=== PATIENT | male | born 1970 | race Caucasian/White ===

== ENCOUNTER → 2019-11-25 09:53 | Outpatient (BNVA) | payer OTHER, SELFPAY | PROVIDERS: PCP Nurse Practitioner Family; Visit Provider Internal Medicine | DX: Z76.89 Persons encountering health services in other specified circumstances (principal) ==

== ENCOUNTER 2019-12-08 12:59 | Outpatient (REF) | payer OTHER, SELFPAY ==
[2019-12-11 13:47] LABS: HIV RNA PCR Qn Copies 30 copies/mL (NOT DETECTED); HIV RNA PCR Qn Log Copies 1.48 (NOT DETECTED)
== END 2019-12-08 13:00 | disposition home or self-care (01) ==
LOC: HO.LAB 12:59
PROVIDERS: PCP Nurse Practitioner Family; Visit Provider Internal Medicine
DX: B20 Human immunodeficiency virus [HIV] disease (principal)
CPT/HCPCS: 87536

== ENCOUNTER → 2020-02-03 13:32 | Outpatient (BNVA) | payer OTHER, SELFPAY | PROVIDERS: PCP Nurse Practitioner Family; Referring Provider Nurse Practitioner Family; Visit Provider Nurse Practitioner Family | DX: Z76.89 Persons encountering health services in other specified circumstances (principal) ==

== ENCOUNTER 2020-03-10 06:14 | Outpatient (REF) | payer OTHER, SELFPAY ==
[2020-03-10 11:51] LABS: Alanine Aminotransferase 39 U/L (0-40); Albumin Level 4.5 g/dL (3.5-5.0); Alkaline Phosphatase 54 U/L (39-117); Anion Gap 14 (12-20); Aspartate Amino Transferase 24 U/L (5-37); Bilirubin Total 0.7 mg/dL (0.0-1.0); Blood Urea Nitrogen 20 mg/dL (9-16); Calcium 9.4 mg/dL (8.4-10.2); Carbon Dioxide 26 mmol/L (22-29); Chloride 106 mmol/L (96-108); Cholesterol 140 mg/dL; Estimated Glomerular Filt Rate > 60; Glucose Fasting 95 mg/dL (60-99); HDL Cholesterol 28 mg/dL; LDL Cholesterol Calculated 55 mg/dl; Potassium 4.5 mmol/l (3.3-5.1); Sodium 141 mmol/L (135-145); Total Protein 7.9 g/dL (6.5-8.0); Triglycerides 285 mg/dL
[2020-03-10 12:10] LABS: Prostate Specific Antigen Scr 0.62 ng/mL (<0.05-4.0); TSH reflex Free T4 2.33 mIU/mL (0.32-4.0)
== END 2020-03-10 06:15 | disposition home or self-care (01) ==
LOC: HO.HMGCLDS 06:14
PROVIDERS: PCP Nurse Practitioner Family; Visit Provider Nurse Practitioner Family
DX: Z00.00 Encounter for general adult medical examination without abnormal findings (principal); Z12.5 Encounter for screening for malignant neoplasm of prostate
CPT/HCPCS: 36415; 80053; 80061; 84153; 84443

== ENCOUNTER 2020-05-19 12:39 | Outpatient (REF) | payer OTHER, SELFPAY ==
[2020-05-19 14:37] LABS: Alanine Aminotransferase 46 U/L (0-40); Albumin Level 4.6 g/dL (3.5-5.0); Alkaline Phosphatase 57 U/L (39-117); Aspartate Amino Transferase 26 U/L (5-37); Bilirubin Direct 0.3 mg/dL (0.0-0.5); Bilirubin Total 0.6 mg/dL (0.0-1.0); Cholesterol 138 mg/dL; HDL Cholesterol 31 mg/dL; LDL Cholesterol Calculated 75 mg/dl; Total Protein 7.9 g/dL (6.5-8.0); Triglycerides 164 mg/dL
[2020-05-20 13:02] LABS: Absolute CD3 Count 1879 cells/uL (840-3060); Absolute CD4 Count 961 cells/uL (490-1740); Absolute CD8 Count 911 cells/uL (180-1170); Absolute Lymphocytes 2230 cells/uL (850-3900); CD4 CD8 Ratio 1.05 (0.86-5.00); Percent CD3 Cells 84 % (57-85); Percent CD4 Cells 43 % (30-61); Percent CD8 Cells 41 % (12-42)
[2020-05-21 17:31] LABS: HIV RNA PCR Qn Copies <20 NOT DETECTED copies/mL (NOT DETECTED); HIV RNA PCR Qn Log Copies <1.30 NOT DETECTED (NOT DETECTED)
== END 2020-05-19 12:40 | disposition home or self-care (01) ==
LOC: HO.LAB 12:39
PROVIDERS: PCP Nurse Practitioner Family; Visit Provider Internal Medicine
DX: B20 Human immunodeficiency virus [HIV] disease (principal); E78.1 Pure hyperglyceridemia
CPT/HCPCS: 36415; 80061; 80076; 86359; 86360; 87536

== ENCOUNTER → 2020-05-25 09:55 | Outpatient (BNVA) | payer OTHER, SELFPAY | PROVIDERS: PCP Nurse Practitioner Family; Referring Provider Nurse Practitioner Family; Visit Provider Internal Medicine ==

== ENCOUNTER 2020-10-08 09:10 | Day surgery (SDC) | payer OTHER, SELFPAY ==
--- NOTE | 2020-10-07 10:06 | P.CONAN_ITS ---
Documented by User: Aleida Khalil NP 10/07/20 10:06 HPI - Anesthesia Eval Consult details Narrative: 49yo M for Colonoscopy PMFSH Active Problems Active Problems: All Active Problems (Updated 05/25/20 @ 13:57 by Linda Alonzo MD) HIV (human immunodeficiency virus infection) (Acute) High triglycerides (Acute) High body mass index (BMI) (Acute) Physical exam (Acute) Screening PSA (prostate specific antigen) (Acute) Screening for colon cancer (Acute) Past Medical History Medical History Dyslipidemia Hepatitis C High body mass index (BMI) High triglycerides HIV (human immunodeficiency virus infection) HTN (hypertension) PONV (postoperative nausea and vomiting) Family History Family History Mother Lung cancer Colon cancer Paternal Grandfather Colon cancer Surgical History Surgical History History of ear surgery [place] teeth extracted Social History Social History Are you a primary care management associate to a significant other at home: No Do you presently have visiting nurse or other home services: No Alcohol intake: current Alcohol intake frequency: holidays/special occasions only Second Hand Smoke Exposure: No Advance Directives: No Advance Directives Information Provided: Yes Meds Allergies Allergy/AdvReac Type Severity Reaction Status Date / Time amoxicillin Allergy Unknown hives Unverified 09/30/20 15:12 Home Medications Medication Instructions Recorded Confirmed Last Taken Type ascorbate calcium (vitamin C) 500 500 mg PO DAILY 11/25/19 09/30/20 Unknown History mg tablet cholecalciferol (vitamin D3) 250 250 mcg PO DAILY 11/25/19 09/30/20 Unknown History mcg (10,000 unit) capsule Exam Exam Date and Time: October 07, 2020 1006 Assessment and Plan Assessment Anesthesia Assessment: Chart Reviewed Documented by User: Tamanna Garcia MD 10/08/20 09:50 PMF Past Medical History Medical History Dyslipidemia Hepatitis C High body mass index (BMI) High triglycerides HIV (human immunodeficiency virus infection) HTN (hypertension) PONV (postoperative nausea and vomiting) Family History Family History Mother Lung cancer Colon cancer Paternal Grandfather Colon cancer Surgical History Surgical History History of ear surgery [place] teeth extracted History of Problems with Anesthesia: No Social History Social History Are you a primary care management associate to a significant other at home: No Do you presently have visiting nurse or other home services: No Alcohol intake: current Alcohol intake frequency: holidays/special occasions only Second Hand Smoke Exposure: No Advance Directives: No Advance Directives Information Provided: Yes Meds Allergies Allergy/AdvReac Type Severity Reaction Status Date / Time amoxicillin Allergy Unknown hives Unverified 09/30/20 15:12 Home Medications Medication Instructions Recorded Confirmed Last Taken Type ascorbate calcium (vitamin C) 500 500 mg PO DAILY 11/25/19 09/30/20 Unknown History mg tablet cholecalciferol (vitamin D3) 250 250 mcg PO DAILY 11/25/19 09/30/20 Unknown History mcg (10,000 unit) capsule Exam Airway Mallampati Class: II TM Dist: >3cm Neck ROM: Full Loose/Missing/Broken Teeth: No Heart: RRR Lungs: CTA Assessment and Plan Assessment Anesthesia Assessment: Anesthesia Plan Discussed Final Anesthetic Review History of Problems with Anesthesia: No NPO: Yes ASA Class: II Final Preanesthetic Review: Meds/Allgs Chart Reviewed, Consent Obtained/Reviewed and Anes Risks/Benef Reviewed Patient Risk: Low Procedure Risk: Low Anesthetic Plan Anesthetic Plan: MAC: Disposition: Standard PACU
[2020-10-08 09:51] VITALS: BP 136/81; PULSE 67; RESP 16; TEMP 36.4; O2SAT 97; BMI 37.8
[2020-10-08] MEDS: Lactated Ringers 1,000 ML 100 ML IVCONT (10:01)
--- NOTE | 2020-10-08 10:13 | P.HPSUR_ITS ---
Pre-Procedural Eval Section A Date of Service: 10/08/20 The patient is an INPATIENT: No The History & Physical has been completed within 30 days and I have reviewed it.: No Section B Chief Complaint: Screening Details of Present Illness: colon cancer screening, FH of colon cancer Relevant Family History (Specify if Yes): Yes Relevant Social History: None Present Medications: see Short Stay Collaborative assessment Medical History: Significant History (Dyslipidemia Hepatitis C High body mass index (BMI) High triglycerides HIV (human immunodeficiency virus infection) HTN (hypertension)) History of Previous Operations: Relevant previous surgery/procedure and date(s) (History of ear surgery [place] teeth extracted) Allergies: Allergies Allergy/AdvReac Type Severity Reaction Status Date / Time amoxicillin Allergy Unknown hives Verified 10/08/20 10:02 Review of Systems Sugical H&P ROS: Negative: Constitution, Cardiovascular, Respiratory and Gastrointestinal Exam Surgical H&P Exam: Normal: Heart, Normal: Lungs, Normal: Extremities and Normal: Abdomen Plan Diagnosis/Plan: Unchanged I have reviewed the history and physical and performed a pertinent physical examination on my patient. No changes have occurred unless specified.
--- NOTE | 2020-10-08 10:34 | PM.OP ---
Brief Operative Note Date of Service: 10/08/20 Pre-op diagnosis: Colon cancer screening, family history of colon cancer (paternal GF at age 68 yrs) Post-op diagnosis: other (Colon polyp, diverticulosis, hemorrhoids.) Procedure: COLONOSCOPY TILL CECUM WITH BIOPSIES Consent: Indications for the procedure and potential complications of bleeding, perforation, reaction to medications and missed diagnosis were discussed with the patient and informed consent was obtained. Instrument: Olympus PCF H 190 L variable stiffness pediatric colonoscope Monitoring: Vital signs and clinical assessment, intermittent blood pressure monitoring, continuous EKG monitoring, Pulse oximetry and Carbon Dioxide monitoring were done throughout the procedure. Colon withdrawl time was 20 minutes. Procedure: The patient was placed in the left lateral decubitis position and pre-procedure medications were administered. After a digital rectal examination of the ano-rectum, the video colonoscope was inserted into the rectum and advanced through the colon to the cecum. The colonoscope was slowly withdrawn in a retrograde panoramic fashion and the colon mucosa was carefully examined including a retroflexed view of the rectum. Findings and interventions are described below. Procedure Difficulty: Without difficulty Findings: Terminal Ileum: Not evaluated Cecum: Normal Ascending Colon: Normal Transverse Colon: Normal Descending Colon: A 2-3 mm diminutive appearing polyps removed with the cold biopsy Sigmoid Colon: Mild diverticulosis Rectum: Normal Ano-rectum: Moderate internal hemorrhoids Colon preparation: Good after some irrigation Impression and Post Procedure Diagnosis: Colonoscopy Findings: One tiny polyp removed Mild diverticulosis seen in the sigmoid colon Moderate hemorrhoids on retroflexed exam. Plan: Await pathology results Patient has an appointment on 10/20/20 in the GI Clinic with Paz Wiley FNP-BC . Repeat Colonoscopy interval based on path results - in 5 years if polyps are adenomatous and due to family hx of colon cancer. Above findings were reviewed with the patient and colon polyps and diverticulosis handouts were given in the discharge area Surgeon: Umu Spaulding MD Anesthesia: MAC (Dr Hartley) Was an Screw Machine Set Up Operator used for this Procedure?: No Screw Machine Set Up Operator: Sabine Singh Estimated blood loss (mL): 0 Pathology: other (A- DESCENDING COLON POLYP) Condition: stable Disposition: PACU
[2020-10-08 11:15] VITALS: BP 101/44; PULSE 93; RESP 16; TEMP 36.4; O2SAT 96
[2020-10-08 11:30] VITALS: BP 113/64; PULSE 75; RESP 18; O2SAT 96
[2020-10-08 11:45] VITALS: BP 109/59; PULSE 71; RESP 18; TEMP 37; O2SAT 97
--- NOTE | 2020-10-08 17:38 | P.OP_ITS ---
Operative Note Operative Note Date of Service: 10/08/20 Narrative: Pre-op diagnosis:?Colon cancer screening, family history of colon cancer (paternal GF at age 68 yrs) Post-op diagnosis:?other (Colon polyp, diverticulosis, hemorrhoids.) Procedure:? COLONOSCOPY TILL CECUM WITH BIOPSIES Consent: Indications for the procedure and potential complications of bleeding, perforation, reaction to medications and missed diagnosis were discussed with the patient and informed consent was obtained. Instrument: Olympus PCF H 190 L variable stiffness pediatric colonoscope Monitoring: Vital signs and clinical assessment, intermittent blood pressure monitoring, continuous EKG monitoring, Pulse oximetry and Carbon Dioxide monitoring were done throughout the procedure. Colon withdrawl time was 20 minutes. Procedure: The patient was placed in the left lateral decubitis position and pre-procedure medications were administered. After a digital rectal examination of the ano-rectum, the video colonoscope was inserted into the rectum and advanced through the colon to the cecum. The colonoscope was slowly withdrawn in a retrograde panoramic fashion and the colon mucosa was carefully examined including a retroflexed view of the rectum. Findings and interventions are described below. Procedure Difficulty: Without difficulty Findings: Terminal Ileum: Not evaluated Cecum:? Normal Ascending Colon:? Normal Transverse Colon:? Normal Descending Colon:? A 2-3 mm diminutive appearing polyps removed with the cold biopsy Sigmoid Colon:? Mild diverticulosis Rectum:? Normal Ano-rectum:? Moderate internal hemorrhoids Colon preparation:? Good after some irrigation Impression and Post Procedure Diagnosis: Colonoscopy Findings: One tiny polyp removed Mild diverticulosis seen in the sigmoid colon Moderate hemorrhoids on retroflexed exam. Plan: Await pathology results Patient has an appointment on 10/20/20 in the GI Clinic with ? Paz Wiley FNP . Repeat Colonoscopy interval based on path results - in 5 years if polyps are adenomatous and due to family hx of colon cancer. Above findings were reviewed with the patient and colon polyps and diverticulosis handouts were given in the discharge area Surgeon:?Umu Spaulding MD Anesthesia:?MAC (Dr Hartley) Was an Real Estate Sales Associate used for this Procedure?:?No Real Estate Sales Associate:?Sabine Singh Estimated blood loss (mL):?0 Pathology:?other (A- DESCENDING COLON POLYP) Condition:?stable Disposition:?PACU
== END 2020-10-08 12:22 ==
LOC: HO.SSS 09:10
PROVIDERS: PCP Nurse Practitioner Family; Visit Provider Internal Medicine Gastroenterology
PROC: 0DJD8ZZ Inspection of Lower Intestinal Tract, Via Natural or Artificial Opening Endoscopic (ICD-10-PCS; CPT 45378; principal; 2020-10-08 10:30)
DX: Z12.11 Encounter for screening for malignant neoplasm of colon (principal); Z80.0 Family history of malignant neoplasm of digestive organs; K63.5 Polyp of colon; K57.30 Diverticulosis of large intestine without perforation or abscess without bleeding; K64.8 Other hemorrhoids; I10 Essential (primary) hypertension; E78.5 Hyperlipidemia, unspecified; B19.20 Unspecified viral hepatitis C without hepatic coma; B20 Human immunodeficiency virus [HIV] disease; Z79.899 Other long term (current) drug therapy; Z88.0 Allergy status to penicillin
CPT/HCPCS: 45380; 88305

== ENCOUNTER 2020-11-30 07:20 | Outpatient (REF) | payer OTHER, SELFPAY ==
[2020-11-30 11:35] LABS: MANUAL DIFF FLAG NO
[2020-11-30 11:41] LABS: Basophils Percent Auto 0.6 % (0-2); Eosinophils Absolute Auto 0.1 X10*3/uL (0.0-0.4); Eosinophils Percent Auto 1.9 % (0-4); Hematocrit 42.6 % (42-52); Hemoglobin 14.8 g/dl (14.0-18.0); Imm Gran Abs Auto 0.02 X10*3/uL (0.00-0.03); Imm Gran Pct Auto 0.3 % (0.0-0.4); Lymphocytes Absolute Auto 2.4 X10*3/uL (1.2-4.9); Lymphocytes Percent Auto 35.4 % (20-40); Mean Corpuscular HGB Conc 34.7 g/dl (31.0-36.0); Mean Corpuscular Hemoglobin 32.1 pg (27.0-33.0); Mean Corpuscular Volume 92.4 fL (80-98); Mean Platelet Volume 11.2 fL (9.4-12.4); Monocytes Absolute Auto 0.6 X10*3/uL (0.1-1.2); Monocytes Percent Auto 8.4 % (2-11); Neutrophils Absolute Auto 3.6 X10*3/uL (2.0-8.3); Neutrophils Percent Auto 53.4 % (45-73); Platelet Count 186 X10*3/uL (160-400); Red Blood Count 4.61 X10*6/uL (4.60-5.80); Red Cell Distribution Width 12.1 % (11.0-16.0); White Blood Count 6.8 X10*3/uL (4.8-10.8)
[2020-11-30 11:58] LABS: Alanine Aminotransferase 40 U/L (0-40); Albumin Level 4.4 g/dL (3.5-5.0); Alkaline Phosphatase 51 U/L (39-117); Anion Gap 12 (12-20); Aspartate Amino Transferase 24 U/L (5-37); Bilirubin Direct 0.2 mg/dL (0.0-0.5); Bilirubin Total 0.6 mg/dL (0.0-1.0); Blood Urea Nitrogen 15 mg/dL (9-16); Calcium 9.8 mg/dL (8.4-10.2); Carbon Dioxide 23 mmol/L (22-29); Chloride 106 mmol/L (96-108); Estimated Glomerular Filt Rate > 60; Glucose Random 127 mg/dL (60-115); Potassium 4.5 mmol/L (3.3-5.1); Sodium 136 mmol/L (135-145); Total Protein 7.8 g/dL (6.5-8.0)
[2020-12-01 09:55] LABS: Syphilis Screen Nonreactive (Nonreactive)
[2020-12-01 12:16] LABS: Absolute CD3 Count 1829 cells/uL (840-3060); Absolute CD4 Count 779 cells/uL (490-1740); Absolute CD8 Count 1035 cells/uL (180-1170); Absolute Lymphocytes 2363 cells/uL (850-3900); CD4 CD8 Ratio 0.75 (0.86-5.00); Percent CD3 Cells 77 % (57-85); Percent CD4 Cells 33 % (30-61); Percent CD8 Cells 44 % (12-42)
[2020-12-01 14:56] LABS: HIV RNA PCR Qn Copies 485 copies/mL (NOT DETECTED); HIV RNA PCR Qn Log Copies 2.69 (NOT DETECTED)
[2020-12-02 15:01] LABS: HCV Log PCR <1.18 NOT DETECTED Log IU/mL (NOT DETECTED); HepC Viral Load <15 NOT DETECTED IU/mL (NOT DETECTED)
== END 2020-11-30 07:21 | disposition home or self-care (01) ==
LOC: HO.HMGCLDS 07:20
PROVIDERS: PCP Nurse Practitioner Family; Visit Provider Internal Medicine
DX: B20 Human immunodeficiency virus [HIV] disease (principal)
CPT/HCPCS: 36415; 80048; 80076; 85025; 86359; 86360; 86780; 87522; 87536

== ENCOUNTER → 2020-12-08 10:04 | Outpatient (BNVA) | payer OTHER, SELFPAY | PROVIDERS: Visit Provider Internal Medicine ==

== ENCOUNTER 2021-03-22 07:08 | Outpatient (REF) | payer OTHER, SELFPAY ==
[2021-03-22 11:31] LABS: Appearance Urine TURBID; Color Urine YELLOW; Glucose Urine UA NEG (NEG); Leukocyte Esterase Urine NEG (NEG); Nitrite Urine NEG (NEG); PH 5.5 (5.0-8.0); Specific Gravity - Urine >= 1.030 (1.005-1.025); UACC Culture Trigger NO; Urine Blood 1+ (NEG); Urine Ketones NEG (NEG); Urine Protein NEG (NEG-TRACE)
[2021-03-22 11:58] LABS: Alanine Aminotransferase 45 U/L (0-40); Albumin Level 4.5 g/dL (3.5-5.0); Alkaline Phosphatase 54 U/L (39-117); Anion Gap 10 (12-20); Aspartate Amino Transferase 24 U/L (5-37); Bilirubin Total 0.7 mg/dL (0.0-1.0); Blood Urea Nitrogen 23 mg/dL (9-16); Calcium 9.9 mg/dL (8.4-10.2); Carbon Dioxide 25 mmol/L (22-29); Chloride 107 mmol/L (96-108); Cholesterol 158 mg/dL; Estimated Glomerular Filt Rate > 60; Glucose Fasting 108 mg/dL (60-99); HDL Cholesterol 33 mg/dL; LDL Cholesterol Calculated 84 mg/dl; Potassium 4.1 mmol/L (3.3-5.1); Sodium 138 mmol/L (135-145); Total Protein 8.1 g/dL (6.5-8.0); Triglycerides 208 mg/dL
[2021-03-22 12:02] LABS: Amorphous Sediment Urine 4+ /LPF; RBC Urine 0-2 /HPF (0); WBC Urine 0 /HPF (0-4)
[2021-03-22 12:20] LABS: Prostate Specific Antigen Scr 0.56 ng/mL (<0.05-4.0)
== END 2021-03-22 07:09 | disposition home or self-care (01) ==
LOC: HO.HMGCLDS 07:08
PROVIDERS: Visit Provider Nurse Practitioner Family
DX: Z00.00 Encounter for general adult medical examination without abnormal findings (principal); Z12.5 Encounter for screening for malignant neoplasm of prostate
CPT/HCPCS: 36415; 80053; 80061; 81001; 84153; 84443

== ENCOUNTER 2021-06-06 08:04 | Outpatient (REF) | payer OTHER, SELFPAY ==
[2021-06-07 13:51] LABS: Absolute CD3 Count 1805 cells/uL (840-3060); Absolute CD4 Count 825 cells/uL (490-1740); Absolute CD8 Count 979 cells/uL (180-1170); Absolute Lymphocytes 2274 cells/uL (850-3900); CD4 CD8 Ratio 0.84 (0.86-5.00); Percent CD3 Cells 79 % (57-85); Percent CD4 Cells 36 % (30-61); Percent CD8 Cells 43 % (12-42)
[2021-06-08 22:36] LABS: HIV RNA PCR Qn Copies 28 copies/mL (NOT DETECTED); HIV RNA PCR Qn Log Copies 1.45 (NOT DETECTED)
== END 2021-06-06 08:05 | disposition home or self-care (01) ==
LOC: HO.LAB 08:04
PROVIDERS: PCP Nurse Practitioner Family; Visit Provider Internal Medicine
DX: B20 Human immunodeficiency virus [HIV] disease (principal)
CPT/HCPCS: 36415; 86359; 86360; 87536

== ENCOUNTER 2021-06-20 07:39 | Outpatient (REF) | payer OTHER, SELFPAY ==
[2021-06-20 10:12] LABS: Syphilis Screen Nonreactive (Nonreactive)
[2021-06-22 15:52] LABS: Absolute CD3 Count 1495 cells/uL (840-3060); Absolute CD4 Count 720 cells/uL (490-1740); Absolute CD8 Count 778 cells/uL (180-1170); Absolute Lymphocytes 1879 cells/uL (850-3900); CD4 CD8 Ratio 0.92 (0.86-5.00); Percent CD3 Cells 80 % (57-85); Percent CD4 Cells 38 % (30-61); Percent CD8 Cells 41 % (12-42)
[2021-06-22 20:41] LABS: HCV Log PCR <1.18 NOT DETECTED Log IU/mL (NOT DETECTED); HepC Viral Load <15 NOT DETECTED IU/mL (NOT DETECTED)
[2021-06-22 21:17] LABS: HIV RNA PCR Qn Copies 28 copies/mL (NOT DETECTED); HIV RNA PCR Qn Log Copies 1.45 (NOT DETECTED)
== END 2021-06-20 07:40 | disposition home or self-care (01) ==
LOC: HO.LAB 07:39
PROVIDERS: PCP Nurse Practitioner Family; Visit Provider Internal Medicine
DX: B20 Human immunodeficiency virus [HIV] disease (principal)
CPT/HCPCS: 36415; 86359; 86360; 86780; 87522; 87536

== ENCOUNTER → 2021-06-29 10:05 | Outpatient (BNVA) | payer OTHER, SELFPAY | PROVIDERS: PCP Nurse Practitioner Family; Visit Provider Internal Medicine | DX: B20 Human immunodeficiency virus [HIV] disease (principal) ==

== ENCOUNTER 2021-12-24 09:43 | Outpatient (REF) | payer OTHER, SELFPAY ==
[2021-12-24 10:05] LABS: MANUAL DIFF FLAG NO
[2021-12-24 10:18] LABS: Basophils Absolute Auto 0.1 X10*3/uL (0.0-0.2); Basophils Percent Auto 0.9 % (0-2); Eosinophils Absolute Auto 0.1 X10*3/uL (0.0-0.4); Eosinophils Percent Auto 2.1 % (0-4); Hematocrit 41.9 % (42.0-52.0); Hemoglobin 14.9 g/dl (14.0-18.0); Imm Gran Abs Auto 0.02 X10*3/uL (0.00-0.03); Imm Gran Pct Auto 0.3 % (0.0-0.4); Lymphocytes Absolute Auto 2.2 X10*3/uL (1.2-4.9); Lymphocytes Percent Auto 35.4 % (20-40); Mean Corpuscular HGB Conc 35.6 g/dl (31.0-36.0); Mean Corpuscular Hemoglobin 31.4 pg (27.0-33.0); Mean Corpuscular Volume 88.4 fL (80.0-98.0); Mean Platelet Volume 9.8 fL (9.4-12.4); Monocytes Absolute Auto 0.5 X10*3/uL (0.1-1.2); Monocytes Percent Auto 8.5 % (2-11); Neutrophils Absolute Auto 3.3 x10*3/uL (2.0-8.3); Neutrophils Percent Auto 52.8 % (45-73); Platelet Count 189 X10*3/uL (160-400); Red Blood Count 4.74 X10*6/uL (4.60-5.80); Red Cell Distribution Width 11.9 % (11.0-16.0); White Blood Count 6.3 X10*3/uL (4.8-10.8)
[2021-12-24 10:49] LABS: Alanine Aminotransferase 47 U/L (0-40); Albumin Level 4.5 g/dL (3.5-5.0); Alkaline Phosphatase 60 U/L (39-117); Anion Gap 13 (12-20); Aspartate Amino Transferase 28 U/L (5-37); Bilirubin Direct 0.3 mg/dL (0.0-0.5); Bilirubin Total 0.7 mg/dL (0.0-1.0); Blood Urea Nitrogen 18 mg/dL (9-16); Calcium 9.6 mg/dL (8.4-10.2); Carbon Dioxide 23 mmol/L (22-29); Chloride 105 mmol/L (96-108); Estimated Glomerular Filt Rate > 60; Glucose Random 103 mg/dL (60-115); Potassium 3.8 mmol/L (3.3-5.1); Sodium 137 mmol/L (135-145); Total Protein 7.9 g/dL (6.5-8.0)
[2021-12-24 14:55] LABS: CT PCR NOT DETECTED (Not Detect.); NG PCR NOT DETECTED (Not Detect.)
[2021-12-26 05:32] LABS: Syphilis Screen Nonreactive (Nonreactive)
[2021-12-26 13:02] LABS: Absolute CD3 Count 1800 cells/uL (840-3060); Absolute CD4 Count 879 cells/uL (490-1740); Absolute CD8 Count 919 cells/uL (180-1170); Absolute Lymphocytes 2195 cells/uL (850-3900); CD4 CD8 Ratio 0.96 (0.86-5.00); Percent CD3 Cells 82 % (57-85); Percent CD4 Cells 40 % (30-61); Percent CD8 Cells 42 % (12-42)
[2021-12-28 13:31] LABS: HIV RNA PCR Qn Copies <20 DETECTED copies/mL (NOT DETECTED); HIV RNA PCR Qn Log Copies <1.30 DETECTED (NOT DETECTED)
[2021-12-29 14:16] LABS: HCV Log PCR <1.18 NOT DETECTED Log IU/mL (NOT DETECTED); HepC Viral Load <15 NOT DETECTED IU/mL (NOT DETECTED)
== END 2021-12-24 09:44 | disposition home or self-care (01) ==
LOC: HO.LAB 09:43
PROVIDERS: PCP Nurse Practitioner Family; Visit Provider Internal Medicine
DX: Z11.3 Encounter for screening for infections with a predominantly sexual mode of transmission (principal); B20 Human immunodeficiency virus [HIV] disease
CPT/HCPCS: 80048; 80076; 85025; 86359; 86360; 86780; 87491; 87522; 87536; 87591

== ENCOUNTER 2022-06-03 09:32 | Outpatient (REF) | payer OTHER, SELFPAY ==
[2022-06-03 09:42] LABS: MANUAL DIFF FLAG NO
[2022-06-03 09:50] LABS: Basophils Absolute Auto 0.1 X10*3/uL (0.0-0.2); Basophils Percent Auto 0.9 % (0-2); Eosinophils Absolute Auto 0.1 X10*3/uL (0.0-0.4); Eosinophils Percent Auto 1.7 % (0-4); Hematocrit 43.5 % (42.0-52.0); Hemoglobin 15.3 g/dl (14.0-18.0); Imm Gran Abs Auto 0.02 X10*3/uL (0.00-0.03); Imm Gran Pct Auto 0.4 % (0.0-0.4); Lymphocytes Absolute Auto 1.7 X10*3/uL (1.2-4.9); Lymphocytes Percent Auto 32.3 % (20-40); Mean Corpuscular HGB Conc 35.2 g/dl (31.0-36.0); Mean Corpuscular Hemoglobin 31.5 pg (27.0-33.0); Mean Corpuscular Volume 89.7 fL (80.0-98.0); Mean Platelet Volume 9.9 fL (9.4-12.4); Monocytes Absolute Auto 0.4 X10*3/uL (0.1-1.2); Monocytes Percent Auto 6.7 % (2-11); Neutrophils Absolute Auto 3.1 x10*3/uL (2.0-8.3); Platelet Count 199 X10*3/uL (160-400); Red Blood Count 4.85 X10*6/uL (4.60-5.80); White Blood Count 5.4 X10*3/uL (4.8-10.8)
[2022-06-03 10:29] LABS: Alanine Aminotransferase 29 U/L (0-40); Albumin Level 4.4 g/dL (3.5-5.0); Alkaline Phosphatase 55 U/L (39-117); Anion Gap 13 (12-20); Aspartate Amino Transferase 20 U/L (5-37); Bilirubin Direct 0.3 mg/dL (0.0-0.5); Bilirubin Total 0.9 mg/dL (0.0-1.0); Blood Urea Nitrogen 13 mg/dL (9-16); Calcium 9.6 mg/dL (8.4-10.2); Carbon Dioxide 24 mmol/L (22-29); Chloride 106 mmol/L (96-108); Estimated Glomerular Filt Rate > 60; Glucose Random 143 mg/dL (60-115); Sodium 139 mmol/L (135-145); Total Protein 7.5 g/dL (6.5-8.0)
[2022-06-05 08:53] LABS: Syphilis Screen Nonreactive (Nonreactive)
[2022-06-05 15:48] LABS: Absolute CD3 Count 1417 cells/uL (840-3060); Absolute CD4 Count 752 cells/uL (490-1740); Absolute CD8 Count 675 cells/uL (180-1170); Absolute Lymphocytes 1791 cells/uL (850-3900); CD4 CD8 Ratio 1.11 (0.86-5.00); Percent CD3 Cells 79 % (57-85); Percent CD4 Cells 42 % (30-61); Percent CD8 Cells 38 % (12-42)
[2022-06-06 20:28] LABS: HIV RNA PCR Qn Copies NOT DETECTED copies/mL (NOT DETECTED); HIV RNA PCR Qn Log Copies NOT DETECTED (NOT DETECTED)
[2022-06-07 18:49] LABS: HCV Log PCR <1.18 NOT DETECTED Log IU/mL (NOT DETECTED); HepC Viral Load <15 NOT DETECTED IU/mL (NOT DETECTED)
== END 2022-06-03 09:33 | disposition home or self-care (01) ==
LOC: HO.LAB 09:32
PROVIDERS: PCP Nurse Practitioner Family; Visit Provider Internal Medicine
DX: B20 Human immunodeficiency virus [HIV] disease (principal)
CPT/HCPCS: 36415; 80048; 80076; 85025; 86359; 86360; 86780; 87522; 87536

== ENCOUNTER → 2022-07-05 13:04 | Outpatient (BNVA) | payer OTHER, SELFPAY | PROVIDERS: PCP Nurse Practitioner Family; Visit Provider Internal Medicine ==

== ENCOUNTER 2022-09-29 07:23 | Outpatient (REF) | payer OTHER, SELFPAY ==
[2022-09-29 08:46] LABS: Alanine Aminotransferase 42 U/L (0-40); Albumin Level 4.2 g/dL (3.5-5.0); Alkaline Phosphatase 55 U/L (39-117); Anion Gap 10 (12-20); Aspartate Amino Transferase 28 U/L (5-37); Bilirubin Total 0.7 mg/dL (0.0-1.0); Blood Urea Nitrogen 16 mg/dL (9-16); Calcium 9.7 mg/dL (8.4-10.2); Carbon Dioxide 25 mmol/L (22-29); Chloride 110 mmol/L (96-108); Estimated Glomerular Filt Rate > 60; Glucose Fasting 99 mg/dL (60-99); Potassium 3.9 mmol/L (3.3-5.1); Sodium 141 mmol/L (135-145)
[2022-09-29 08:51] LABS: Estimated Average Glucose 91 mg/dL; Hemoglobin A1c % 4.8 %
== END 2022-09-29 07:24 | disposition home or self-care (01) ==
LOC: HO.LAB 07:23
PROVIDERS: PCP Nurse Practitioner Family; Visit Provider Nurse Practitioner Family
DX: R73.01 Impaired fasting glucose (principal)
CPT/HCPCS: 36415; 80053; 83036

== ENCOUNTER 2022-10-18 08:46 | Outpatient (AMB) | payer OTHER, SELFPAY ==
[2022-10-18 08:53] VITALS: BP 146/88; PULSE 75; O2SAT 97; BMI 37.8
--- NOTE | 2022-10-18 08:53 | MHC.PC.OV ---
Vital Signs 10/18/22 08:53 10/18/22 09:24 Height 5 ft 4 in Weight 220 lb 6 oz BMI 37.8 BP 146/88 H 146/84 H Blood Pressure Location Lt brachial Lt brachial Position Sitting Sitting Pulse 75 Pulse Source Pulse Oximeter Pulse Oximetry (%) 97 Oxygen Delivery Method Room Air Intake Visit Reasons: Annual PE Allergies amoxicillin Allergy (Unknown, Verified 10/18/22 08:57) hives Medication List - Last Reconciled 10/18/22 by AMY Saleh ascorbate calcium (vitamin C) 500 mg PO DAILY atorvastatin 10 mg PO DAILY cholecalciferol (vitamin D3) 250 mcg PO DAILY dolutegravir (Tivicay) 50 mg PO DAILY 30 days emtricitabine-tenofovir alafen 200-25 mg (Descovy) 1 tab PO DAILY 30 days lisinopril 2.5 mg PO DAILY omega-3 acid ethyl esters 1 cap PO BID sertraline 50 mg PO DAILY Tobacco use date assessed: 10/18/22 Dental Screening Dental Screen Date: 10/18/22 Did you have a dental visit in the last 12 months?: No Did you have a dental problem in the last 6 months where you did not have access to dental care?: No Was dental information given to patient?: No HPI Annual PE HPI Details Pt is here for a PE. Will order labs. Colon screen is up to date. Due for PSA, will order. Denies dribbling with urination, weal stream, and nocturia. Pt reports ED. Will check testosterone and send sildenafil. HTN: Will have pt monitor his blood pressure at home and drop off values in a few weeks. Denies chest pain, shortness of breath, headache, dizziness, and blurred vision. [facility] Medical History Dyslipidemia Hepatitis C High body mass index (BMI) High triglycerides HIV (human immunodeficiency virus infection) HTN (hypertension) PONV (postoperative nausea and vomiting) Surgical History History of ear surgery [place] teeth extracted Family History Mother Lung cancer Colon cancer Mental health disorder Paternal Grandfather Colon cancer Other Substance use disorder Social History Housing: Apartment Are you a primary career guidance technician to a significant other at home: No Do you presently have visiting nurse or other home services: No Alcohol intake: current Alcohol intake frequency: holidays/special occasions only Patient Tobacco Use Status: Never used Tobacco e-Cigarette/Vaping Use: Never Used Second Hand Smoke Exposure: No Current occupational status: employed Cognitive needs: No Hearing needs: No Vision needs: No Questionnaire Thrive Questionnaire Date Thrive assessed: 03/10/21 BRISA-7 AMB Questionnaire BRISA-7 Date BRISA - 7 assessed: 03/10/21 Source: Developed by Drs. Gary Mckeon, Jesica Edmond, Aj Pitts and colleagues, with an educational anamaria from [employer]. Review of Systems Const Denies chills and Denies fever(s) Eyes Denies blurry vision ENT Denies vertigo, Denies dizziness and Denies sore throat Card Denies chest pain at rest, Denies chest pain with activity, Denies diaphoresis, Denies dyspnea and Denies dyspnea on exertion Resp Denies cough, Denies dyspnea, Denies dyspnea on exertion and Denies wheezing GI Denies abdominal pain, Denies melena, Denies hematochezia, Denies constipation, Denies diarrhea and Denies loose stools Denies hematuria Musc Denies numbness and Denies tingling Skin/Breast Denies lesions Neuro Denies vertigo, Denies dizziness, Denies numbness and Denies tingling Psych Denies anxiety, Denies depression, Denies homicidal ideation, Denies suicidal ideation and Denies other (substance abuse) Aller/Immun Denies wheezing Physical exam (Primary Care) Vital Signs: Last Vital Signs Pulse 75 10/18/22 08:53 BP 146/88 H 10/18/22 08:53 Pulse Ox 97 10/18/22 08:53 Oxygen Delivery Method Room Air 10/18/22 08:53 BMI result Body Mass Index 37.8 Tobacco/Smoking Status: Tobacco use Status Tobacco use date assessed 10/18/22 10/18/22 08:59 Patient Tobacco Use Status Never used Tobacco 10/18/22 08:54 e-Cigarette/Vaping Use Never Used 10/18/22 08:59 Thrive Assessment: Date of Thrive Assessment Date Thrive assessed 03/10/21 10/18/22 08:54 Const General: cooperative Nutritional Appearance: obese Orientation/consciousness: patient oriented x3 HENMT Head: Yes normal to inspection, Yes normocephalic and Yes atraumatic Ears: TM's normal bilaterally Eyes General: appearance normal, both eyes and all related structures Alignment and Position: alignment normal and position normal Neck Neck: Yes normal visual inspection and Yes no lymphadenopathy Thyroid: Thyroid normal Resp Effort & Inspection: normal respiratory effort Auscultation: clear to auscultation bilaterally Cardio Rate: regular rate Rhythm: regular rhythm Heart sounds: S1 normal heart sound present, S2 normal heart sound present and no murmurs GI Palpation (GI): Soft to palpation and nontender Auscultation: normal bowel sounds Male General Exam: Yes normal external exam Penis: normal penis Scrotum: scrotum normal, testes descended bilaterally and no inguinal hernias Testes: no testicular mass Skin Rashes: no rashes Neuro General: patient oriented x3, moves all extremities, no focal motor deficits and deep tendon reflexes 2+ bilaterally Romberg Test: Negative Psych Appearance: grossly normal Mental Status: mental status grossly normal Speech and movement: Normal speech and movement present Affect: normal affect Attitude: cooperative Thought process: Normal thought process present Thought content: Normal thought content present Insight: Good insight present (Psych) Judgement: Good judgement present (Psych) Assessment and Plan Assessment & Plan (1) Physical exam: Code(s): Z00.00 - Encounter for general adult medical examination without abnormal findings Plan: Labs ordered (2) Screening PSA (prostate specific antigen): Code(s): Z12.5 - Encounter for screening for malignant neoplasm of prostate Plan: PSA ordered (3) Erectile dysfunction: Code(s): N52.9 - Male erectile dysfunction, unspecified Plan: Testosterone ordered, sildenafil sent Plan The patient agreed to the use of a esthetician and manager medical spa for this encounter. Scribed for AMY Holguin by Crissy Louise esthetician and manager medical spa, on 10/18/2022 at 09:15 EST. Orders: Orders Comprehensive [place]. Panel Fast Today Z00.00 - Encounter for general adult medical examination without abnormal findings Lipid Panel Today Z00.00 - Encounter for general adult medical examination without abnormal findings TSH reflex Free T4 Today Z00.00 - Encounter for general adult medical examination without abnormal findings Complete Blood Count Auto Diff Today Z00.00 - Encounter for general adult medical examination without abnormal findings UA CC w/rflx Micro + Cult Today Z00.00 - Encounter for general adult medical examination without abnormal findings Prostate Specific Antigen Scr Today Z12.5 - Encounter for screening for malignant neoplasm of prostate Testosterone, Free/Total Today N52.9 - Male erectile dysfunction, unspecified Medications: New sildenafil administer 30 minutes to 4 hours before activity 50 mg PO DAILY PRN 10 tabs 0RF sexual activity Coding Level of Care Code Est Pt Prev Care 40-64y(42574) Diagnoses Physical exam Z00.00 Screening PSA (prostate specific antigen) Z12.5 Erectile dysfunction N52.9
[2022-10-18 09:24] VITALS: BP 146/84
== END 2022-10-18 09:45 | disposition home or self-care (01) ==
PROVIDERS: Visit Provider Nurse Practitioner Family
DX: Z00.00 Encounter for general adult medical examination without abnormal findings (principal); Z12.5 Encounter for screening for malignant neoplasm of prostate; N52.9 Male erectile dysfunction, unspecified
CPT/HCPCS: 99396

== ENCOUNTER 2022-11-27 07:33 | Outpatient (REF) | payer BC, SELFPAY ==
[2022-11-27 08:50] LABS: Alanine Aminotransferase 42 U/L (0-40); Albumin Level 4.4 g/dL (3.5-5.0); Alkaline Phosphatase 55 U/L (39-117); Anion Gap 12 (12-20); Aspartate Amino Transferase 25 U/L (5-37); Bilirubin Direct 0.2 mg/dL (0.0-0.5); Bilirubin Total 0.7 mg/dL (0.0-1.0); Blood Urea Nitrogen 13 mg/dL (9-16); Calcium 9.7 mg/dL (8.4-10.2); Carbon Dioxide 24 mmol/L (22-29); Chloride 108 mmol/L (96-108); Cholesterol 131 mg/dL (<200); Estimated Glomerular Filt Rate > 60; Glucose Fasting 104 mg/dL (60-99); Glucose Random 104 mg/dL (60-115); HDL Cholesterol 32 mg/dL (>40); LDL Cholesterol Calculated 66 mg/dL (<100); Sodium 140 mmol/L (135-145); Triglycerides 166 mg/dL (<150)
[2022-11-27 09:00] LABS: Appearance Urine Clear; Color Urine Yellow; Glucose Urine UA Negative (Negative); Leukocyte Esterase Urine Negative (Negative); Nitrite Urine Negative (Negative); PH 5.5 (5.0-9.0); Specific Gravity - Urine 1.025 (1.005-1.025); UMIC TRIGGER UACC YES; Urine Blood Trace (Negative); Urine Ketones Negative (Negative); Urine Protein Negative (Neg-Trace)
[2022-11-27 09:07] LABS: Bacteria Urine None Seen (None Seen); Hyaline Casts Urine 0-2 /LPF (0-2); RBC Urine 0-2 /HPF (0-2); Squamous Epithelial Cell Urine 0-2 /HPF (0-2); WBC Urine 0-5 /HPF (0-5)
[2022-11-27 09:41] LABS: TSH reflex Free T4 1.74 uIU/mL (0.32-4.0)
[2022-12-02 10:04] LABS: Testosterone, Free 85.8 pg/mL (35.0-155.0); Testosterone, Total 511 ng/dL (250-1100)
== END 2022-11-27 07:34 | disposition home or self-care (01) ==
LOC: HO.LAB 07:33
PROVIDERS: PCP Nurse Practitioner Family; Referring Provider Nurse Practitioner Family; Visit Provider Internal Medicine
DX: Z00.00 Encounter for general adult medical examination without abnormal findings (principal); N52.9 Male erectile dysfunction, unspecified; Z12.5 Encounter for screening for malignant neoplasm of prostate; Z13.29 Encounter for screening for other suspected endocrine disorder
CPT/HCPCS: 36415; 80048; 80053; 80061; 80076; 81001; 82248; 84153; 84402; 84403; 84443; 85025; 86359; 86360; 86780; 87522; 87536

== ENCOUNTER 2022-12-13 08:49 | Outpatient (REF) | payer BC, SELFPAY ==
--- NOTE | ~2022-12-13 | US_ITS ---
EXAMINATION: US ABDOMEN COMPLETE CLINICAL INFORMATION: Abnormal levels of other serum enzymes. Elevated liver enzymes. COMPARISON: MRI abdomen 06/18/2013. CT abdomen 04/22/2013. Ultrasound abdomen 01/08/2013 and 03/07/2010. TECHNIQUE: Real-time imaging of the abdominal viscera. FINDINGS: PANCREAS: Normal head and body, the tail is obscured by bowel gas. ABDOMINAL AORTA: The proximal, mid, and distal segments are normal in caliber. INFERIOR VENA CAVA: Visualized portions are normal. LIVER: Normal. The liver is normal in size. The liver contour is normal. Parenchymal echogenicity is normal. No focal hepatic lesion. There is no intrahepatic biliary duct dilatation seen. GALLBLADDER: The gallbladder is physiologically distended without evidence of stones, sludge, wall thickening or pericholecystic fluid. 0.4 x 0.4 x 0.4 cm polyp is seen along the anterior wall. Hypoechoic material with ringdown artifact in the fundus of the gallbladder is consistent with adenomyomatosis. COMMON BILE DUCT: Normal in caliber measuring 0.5 cm in diameter. RIGHT KIDNEY: Normal. No hydronephrosis. No renal calculi or focal parenchymal lesions. The kidney measures 12.0 cm in maximum dimension. LEFT KIDNEY: Normal. No hydronephrosis. No renal calculi or focal parenchymal lesions. The kidney measures 11.6 cm in maximum dimension. SPLEEN: Normal. The spleen measures 12.5 cm in maximum dimension. FREE FLUID: None. US/US abdomen complete IMPRESSION: 1. Adenomyomatosis of the gallbladder. 2. 0.4 cm gallbladder polyp.
== END 2022-12-13 08:50 | disposition home or self-care (01) ==
LOC: HO.HMGCX 08:49
PROVIDERS: PCP Nurse Practitioner Family; Visit Provider Nurse Practitioner Family
DX: R74.8 Abnormal levels of other serum enzymes (principal)
CPT/HCPCS: 76700

== ENCOUNTER 2023-01-03 10:29 | Outpatient (REF) | payer BC, SELFPAY ==
[2023-01-03 11:36] LABS: Urine Cytology See Pathology rpt
[2023-01-03 11:49] LABS: Appearance Urine Clear; Color Urine Yellow; Glucose Urine UA Negative (Negative); Leukocyte Esterase Urine Negative (Negative); Nitrite Urine Negative (Negative); PH 5.5 (5.0-9.0); Specific Gravity - Urine <= 1.005 (1.005-1.025); Urine Blood Negative (Negative); Urine Ketones Negative (Negative); Urine Protein Negative (Neg-Trace)
== END 2023-01-03 10:30 | disposition home or self-care (01) ==
LOC: HO.LAB 10:29
PROVIDERS: PCP Nurse Practitioner Family; Visit Provider Nurse Practitioner Family
DX: R31.29 Other microscopic hematuria (principal); B20 Human immunodeficiency virus [HIV] disease; R21 Rash and other nonspecific skin eruption
CPT/HCPCS: 81003; 87086; 88112; 99212

== ENCOUNTER 2023-01-03 10:50 | Outpatient (AMB) | payer BC, SELFPAY ==
--- NOTE | 2023-01-03 10:57 | MHC.OFFVIS ---
Intake Vital Signs 01/03/23 11:04 Height 5 ft 4 in Weight 227 lb BMI 39.0 BP 136/72 Blood Pressure Location Lt brachial Position Sitting Pulse 72 Pulse Source Pulse Oximeter Pulse Oximetry (%) 98 Intake Visit Reasons: 6 mth f/u, HIV Allergies amoxicillin Allergy (Unknown, Verified 01/03/23 11:12) hives HPI 6 mth f/u, HIV HPI Details HE is doing well. He has no complaints On 11/27 CD4 count is 733 and viral load undetectable. [facility] Medical History Dyslipidemia Hepatitis C High body mass index (BMI) High triglycerides HIV (human immunodeficiency virus infection) HTN (hypertension) PONV (postoperative nausea and vomiting) Surgical History History of ear surgery [place] teeth extracted Family History Mother Lung cancer Colon cancer Mental health disorder Paternal Grandfather Colon cancer Other Substance use disorder Housing: Apartment Are you a primary laboratory animal care veterinarian to a significant other at home: No Do you presently have visiting nurse or other home services: No Alcohol intake: current Alcohol intake frequency: holidays/special occasions only Patient Tobacco Use Status: Never used Tobacco e-Cigarette/Vaping Use: Never Used Second Hand Smoke Exposure: No Current occupational status: employed Cognitive needs: No Hearing needs: No Vision needs: No Review of Systems Const All systems reviewed & are unremarkable except as noted in HPI and below Physical Exam Vital Signs: Last Vital Signs Pulse 72 01/03/23 11:04 BP 136/72 01/03/23 11:04 Pulse Ox 98 01/03/23 11:04 BMI result Body Mass Index 39.0 Const Other: General: cooperative Orientation/consciousness: patient oriented x3 HEENT Head: Yes normal to inspection Mouth: Normal oral and palatal mucosa present Eyes General: appearance normal, both eyes and all related structures Pupils: Equal, round and reactive pupils present Resp Effort & Inspection: normal respiratory effort Cardio Rate: regular rate Rhythm: regular rhythm GI Palpation (GI): Soft to palpation and nontender General: Yes no CVA tenderness Back/Spine/Pelvis Back: no CVA tenderness Skin General skin exam: no rashes or lesions noted Neuro General: patient oriented x3 Cranial nerves: Yes CN's II-XII intact bilaterally and Yes Equal, round and reactive pupils present Extrem General: Yes normal to inspection Psych Appearance: grossly normal Assessment & Plan Assessment & Plan (1) HIV (human immunodeficiency virus infection): Comment: He is doing well on Descovy and Tivicay. He has no complaints He is up to date on healthcare maintenance strategies Code(s): B20 - Human immunodeficiency virus [HIV] disease Plan: Continue Tivicay and Descovy, renewal in Check CD4 count and viral load in six months. Medications: New itraconazole must administer with a meal/food 100 mg PO DAILY 14 caps 0RF 14 days clotrimazole 1% (Lotrimin AF (clotrimazole)) 1 appl topical BID 30 grams 0RF 14 days Refilled dolutegravir (Tivicay) 50 mg PO DAILY 30 tabs 5RF 30 days emtricitabine-tenofovir alafen 200-25 mg (Descovy) 1 tab PO DAILY 30 tabs 5RF 30 days Coding Level of Care Code Est Pt Level 3 (67864) Diagnoses HIV (human immunodeficiency virus infection) B20
[2023-01-03 11:04] VITALS: BP 136/72; PULSE 72; O2SAT 98; BMI 39.0
== END 2023-01-03 11:39 | disposition home or self-care (01) ==
PROVIDERS: PCP Nurse Practitioner Family; Visit Provider Internal Medicine
DX: B20 Human immunodeficiency virus [HIV] disease (principal)
CPT/HCPCS: 99213

== ENCOUNTER 2023-02-22 08:16 | Outpatient (AMB) | payer BC, SELFPAY ==
--- NOTE | 2023-02-22 08:20 | MHC.PC.OV ---
Vital Signs 02/22/23 08:24 Height 5 ft 4 in Weight 227 lb BMI 39.0 BP 136/80 Blood Pressure Location Rt brachial Position Sitting Pulse 71 Pulse Source Pulse Oximeter Pulse Oximetry (%) 94 Oxygen Delivery Method Room Air Intake Visit Reasons: 4 month fu Intake Note: Patient here for Follow up. Allergies amoxicillin Allergy (Unknown, Verified 02/22/23 08:24) hives Tobacco use date assessed: 02/22/23 Dental Screening Dental Screen Date: 02/22/23 Did you have a dental visit in the last 12 months?: No Did you have a dental problem in the last 6 months where you did not have access to dental care?: No Was dental information given to patient?: Patient has dentist HPI 4 month fu HPI Details Hx of micro hem. Pt has never smoked. He reports a family hx of kidney stones (brother) but no personal hx. Will order UA, culture, cytology, and CT urogram. Will also refer to urology. Denies fever, chills, flank pain, and visual hematuria. [facility] Medical History PONV (postoperative nausea and vomiting) High triglycerides Dyslipidemia HTN (hypertension) Hepatitis C High body mass index (BMI) HIV (human immunodeficiency virus infection) Surgical History [place] teeth extracted History of ear surgery Family History Mother Lung cancer Colon cancer Mental health disorder Paternal Grandfather Colon cancer Other Substance use disorder Social History Housing: Apartment Are you a primary career coordinator to a significant other at home: No Do you presently have visiting nurse or other home services: No Alcohol intake: current Alcohol intake frequency: holidays/special occasions only Patient Tobacco Use Status: Never used Tobacco e-Cigarette/Vaping Use: Never Used Second Hand Smoke Exposure: No Current occupational status: employed Cognitive needs: No Hearing needs: No Vision needs: No Questionnaire PHQ-9 Over the last 2 weeks, how often have you been bothered by any of the following problems? 1. Little interest or pleasure in doing things: not at all 2. Feeling down, depressed, or hopeless: not at all 3. Trouble falling or staying asleep, or sleeping too much: not at all 4. Feeling tired or having little energy: not at all 5. Poor appetite or overeating: not at all 6. Feeling bad about yourself - or that you are a failure or have let yourself or your family down: not at all 7. Trouble concentrating on things, such as reading the newspaper or watching television: not at all 8. Moving or speaking so slowly that other people could have noticed. Or the opposite - being so fidgety or restless that you have been moving around a lot more than usual: not at all 9. Thoughts that you would be better off or of hurting yourself in some way: not at all Total score: 0 Depression Screening Interpretation: Negative Depression Screening Done: Yes 30504 - PHQ-9 Billing: Yes Source: Developed by Drs. Gary Mckeon, Jesica Edmond, Aj Pitts and colleagues, with an educational anamaria from [employer]. Thrive Questionnaire Date Thrive assessed: 02/22/23 I am a: Patient What is your living situation today?: I have a steady place to live Within the past 12 months, did the food you bought not last and you didn't have the money to get more?: Never true Within the past 12 months, did you worry whether your food would run out before you got money to buy more?: Never true Do you have trouble paying for medicines?: No Do you have trouble getting transportation to medical appointments?: No Do you have trouble paying your heating and electricity bill?: No Do you have trouble taking care of your child, family member or friend?: No Do you have trouble with day-to-day activities such as bathing, preparing meals, shopping, managing finances, etc.?: No Are you currently unemployed and looking for a job?: No Are you interested in more education?: No AUDIT C Alcohol Use Questionnaire (AUDIT-C) 1. How often do you have a drink containing alcohol?: Never 3. How often do you have six or more drinks on one occasion?: Never Total Score: 0 Score Reviewed/Action Taken: No BRISA-7 AMB Questionnaire BRISA-7 Date BRISA - 7 assessed: 02/22/23 Feeling nervous, anxious, or on edge: 0 = Not at all Not being able to stop or control worryin = Not at all Worrying too much about different things: 0 = Not at all Trouble relaxin = Not at all Being so restless that it is hard to sit still: 0 = Not at all Becoming easily annoyed or irritable: 0 = Not at all Feeling afraid as if something awful might happen: 0 = Not at all Total BRISA-7 score (0-4 normal; 5-9 mild; 10-14 moderate; 15-21 severe): 0 Source: Developed by Drs. Gary Mckeon, Jesica Edmond, Aj Pitts and colleagues, with an educational anamaria from [employer]. BRISA-7 Assessment Billing BRISA-7 Assessment Tool: BRISA-7 Assessment 45628 Review of Systems Const Reports as per HPI Physical exam (Primary Care) Vital Signs: Last Vital Signs Pulse 71 02/22/23 08:24 BP 136/80 02/22/23 08:24 Pulse Ox 94 02/22/23 08:24 Oxygen Delivery Method Room Air 02/22/23 08:24 BMI result Body Mass Index 39.0 Tobacco/Smoking Status: Tobacco use Status Tobacco use date assessed 02/22/23 02/22/23 08:27 Patient Tobacco Use Status Never used Tobacco 02/22/23 08:20 e-Cigarette/Vaping Use Never Used 02/22/23 08:20 Depression Screening Interpretation: Negative Thrive Assessment: Date of Thrive Assessment Date Thrive assessed 03/10/21 02/22/23 08:20 Const General: cooperative Nutritional Appearance: obese Orientation/consciousness: patient oriented x3 Resp Effort & Inspection: normal respiratory effort Auscultation: clear to auscultation bilaterally Cardio Rate: regular rate Rhythm: regular rhythm Heart sounds: S1 normal heart sound present and S2 normal heart sound present General: Yes no CVA tenderness Back/Spine/Pelvis Back: no CVA tenderness Neuro General: patient oriented x3 Psych Appearance: grossly normal Mental Status: mental status grossly normal Speech and movement: Normal speech and movement present Affect: normal affect Attitude: cooperative Thought process: Normal thought process present Thought content: Normal thought content present Insight: Good insight present (Psych) Judgement: Good judgement present (Psych) Assessment and Plan Assessment & Plan (1) Microscopic hematuria: Code(s): R31.29 - Other microscopic hematuria Plan: UA, culture, cytology, CT urogram ordered, referred to urology Plan The patient agreed to the use of a medical administrator for this encounter. Scribed for AMY Holguin by Crissy Louise medical administrator, on 02/22/2023 at 08:35 EST. Orders: Orders Complete Blood Count Auto Diff Today Z00.00 - Encounter for general adult medical examination without abnormal findings Urine Cytology Today R31.29 - Other microscopic hematuria Urine Culture Today R31.29 - Other microscopic hematuria Comprehensive [place]. Panel Fast Today Z00.00 - Encounter for general adult medical examination without abnormal findings TSH reflex Free T4 Today Z00.00 - Encounter for general adult medical examination without abnormal findings UA CC w/rflx Micro + Cult Today Z00.00 - Encounter for general adult medical examination without abnormal findings Lipid Panel Today Z00.00 - Encounter for general adult medical examination without abnormal findings CT urogram Today R31.29 - Other microscopic hematuria Referrals Urology Referral R31.29 - Other microscopic hematuria Coding Level of Care Code Est Pt Level 3 (37179) Diagnoses Microscopic hematuria R31.29 Additional Codes BRISA-7 Assessment Billing - BRISA-7 Assessment Tool: BRISA-7 Assessment 56800 ([id number])
[2023-02-22 08:24] VITALS: BP 136/80; PULSE 71; O2SAT 94; BMI 39.0
== END 2023-02-22 09:30 | disposition home or self-care (01) ==
PROVIDERS: PCP Nurse Practitioner Family; Visit Provider Nurse Practitioner Family
DX: R31.29 Other microscopic hematuria (principal)
CPT/HCPCS: 99213

== ENCOUNTER 2023-02-22 08:48 | Outpatient (REF) | payer BC, SELFPAY | END 2023-02-22 08:49 | disposition home or self-care (01) | LOC: HO.HMGCLDS 08:48 | PROVIDERS: PCP Nurse Practitioner Family; Visit Provider Nurse Practitioner Family | DX: Z00.00 Encounter for general adult medical examination without abnormal findings (principal); R31.29 Other microscopic hematuria | CPT/HCPCS: 81003; 87086; 88112 ==

== ENCOUNTER 2023-04-26 08:02 | Outpatient (REF) | payer BC, SELFPAY ==
--- NOTE | ~2023-04-26 | CT_ITS ---
EXAMINATION: CT ABDOMEN AND PELVIS WITHOUT AND WITH CONTRAST CLINICAL INFORMATION: Microscopic hematuria. COMPARISON: Ultrasound abdomen 12/13/2022. MRI abdomen 06/18/2013 - report only. CT abdomen 04/22/2013 - report only. TECHNIQUE: Noncontrast CT of the abdomen and pelvis is performed followed by split bolus contrast-enhanced images using 85 mL Omnipaque 350 contrast.? Postcontrast imaging is performed during the combined nephrogram and excretion phase. Sagittal and coronal reformatted images were obtained on the technologist's workstation for both the precontrast and postcontrast phases. This CT examination was performed using dose optimization techniques as appropriate, variously including the following: *Automated exposure control *Adjustment of mA and/or kV according to patient size (this includes techniques or standardized protocols for targeted exams where dose is matched to indication/reason for exam; i.e. extremities or head) *Use of iterative reconstruction technique DLP: 1777 mGy-cm FINDINGS: LUNG BASES: The visualized lung bases are unremarkable. LIVER, GALLBLADDER, AND BILIARY TREE: The liver is enlarged measuring 19.4 cm in greatest cephalocaudad dimension. Attenuation and shape are normal. No focal hepatic lesion or biliary ductal dilatation is present. The gallbladder is unremarkable with no evidence of radiopaque gallstones, gallbladder wall thickening, or obvious pericholecystic inflammatory changes. PANCREAS: Unremarkable. SPLEEN: Unremarkable. ADRENAL GLANDS: Unremarkable. KIDNEYS AND URETERS: The kidneys are normal in size, shape, and attenuation. The left kidney measures 11.6 cm in greatest length and the right kidney measures 11.9 cm. No hydronephrosis, hydroureter, or calculi seen. No perinephric stranding. BLADDER: Unremarkable. GASTROINTESTINAL TRACT: The small and large bowel are unremarkable. The appendix is unremarkable. ABDOMINAL WALL: No significant hernia is appreciated. Tiny periumbilical hernia seen containing only fat. LYMPH NODES: No retroperitoneal lymphadenopathy. VASCULAR: Unremarkable. PELVIC VISCERA: The prostate and seminal vesicles are unremarkable. OSSEUS STRUCTURES: Degenerative changes are noted in the spine most marked at L5-S1. CT/CT urogram IMPRESSION: 1. A cause for the patient's microscopic hematuria has not been found. 2. Incidental note made of mild hepatomegaly and degenerative changes in the spine.
[2023-04-26] MEDS: iohexoL 350 MG/ML 100 ML INFUS..BTL 85 ML IV (09:35)
[2023-04-27 10:25] LABS: Creatinine POC 0.9 mg/dL (0.5-1.4); GFR POC > 60
== END 2023-04-26 08:03 | disposition home or self-care (01) ==
LOC: HO.CT 08:02
PROVIDERS: PCP Nurse Practitioner Family; Visit Provider Nurse Practitioner Family
DX: R31.29 Other microscopic hematuria (principal)
CPT/HCPCS: 74178; 82565; Q9967

== ENCOUNTER 2023-06-23 07:15 | Outpatient (REF) | payer BC, SELFPAY ==
[2023-06-23 07:36] LABS: MANUAL DIFF FLAG NO
[2023-06-23 08:04] LABS: Basophils Absolute Auto 0.1 X10*3/uL (0.0-0.2); Eosinophils Absolute Auto 0.1 X10*3/uL (0.0-0.4); Eosinophils Percent Auto 1.6 % (0-4); Hemoglobin 15.3 g/dl (14.0-18.0); Imm Gran Abs Auto 0.01 X10*3/uL (0.00-0.03); Imm Gran Pct Auto 0.2 % (0.0-0.4); Lymphocytes Absolute Auto 1.7 X10*3/uL (1.2-4.9); Mean Corpuscular HGB Conc 34.8 g/dl (31.0-36.0); Mean Corpuscular Hemoglobin 31.7 pg (27.0-33.0); Mean Corpuscular Volume 91.3 fL (80.0-98.0); Mean Platelet Volume 9.8 fL (9.4-12.4); Monocytes Absolute Auto 0.5 X10*3/uL (0.1-1.2); Monocytes Percent Auto 8.7 % (2-11); Neutrophils Absolute Auto 2.9 x10*3/uL (2.0-8.3); Neutrophils Percent Auto 56.5 % (45-73); Platelet Count 179 X10*3/uL (160-400); Red Blood Count 4.82 X10*6/uL (4.60-5.80); Red Cell Distribution Width 12.4 % (11.0-16.0); White Blood Count 5.2 X10*3/uL (4.8-10.8)
[2023-06-23 08:52] LABS: Alanine Aminotransferase 45 U/L (0-40); Albumin Level 4.3 g/dL (3.5-5.0); Alkaline Phosphatase 55 U/L (39-117); Anion Gap 13 (12-20); Aspartate Amino Transferase 27 U/L (5-37); Bilirubin Total 0.6 mg/dL (0.0-1.0); Blood Urea Nitrogen 17 mg/dL (9-16); Calcium 10.2 mg/dL (8.4-10.2); Carbon Dioxide 23 mmol/L (22-29); Chloride 109 mmol/L (96-108); Cholesterol 145 mg/dL (<200); Estimated Glomerular Filt Rate > 60; Glucose Fasting 110 mg/dL (60-99); HDL Cholesterol 36 mg/dL (>40); LDL Cholesterol Calculated 80 mg/dL (<100); Sodium 141 mmol/L (135-145); Total Protein 7.9 g/dL (6.5-8.0); Triglycerides 145 mg/dL (<150)
[2023-06-23 09:10] LABS: Syphilis Screen Nonreactive (Nonreactive); TSH reflex Free T4 1.25 uIU/mL (0.32-4.0)
[2023-06-25 10:39] LABS: Absolute CD3 Count 1506 cells/uL (840-3060); Absolute CD4 Count 752 cells/uL (490-1740); Absolute CD8 Count 762 cells/uL (180-1170); Absolute Lymphocytes 1909 cells/uL (850-3900); CD4 CD8 Ratio 0.99 (0.86-5.00); Percent CD3 Cells 79 % (57-85); Percent CD4 Cells 39 % (30-61); Percent CD8 Cells 40 % (12-42)
[2023-06-25 14:59] LABS: HIV RNA PCR Qn Copies <20 DETECTED copies/mL (NOT DETECTED); HIV RNA PCR Qn Log Copies <1.30 DETECTED (NOT DETECTED)
[2023-06-26 14:04] LABS: HCV Log PCR <1.18 NOT DETECTED Log IU/mL (NOT DETECTED); HepC Viral Load <15 NOT DETECTED IU/mL (NOT DETECTED)
== END 2023-06-23 07:16 | disposition home or self-care (01) ==
LOC: HO.LAB 07:15
PROVIDERS: PCP Nurse Practitioner Family; Visit Provider Internal Medicine
DX: Z00.00 Encounter for general adult medical examination without abnormal findings (principal); B20 Human immunodeficiency virus [HIV] disease
CPT/HCPCS: 36415; 80053; 80061; 84443; 85025; 86359; 86360; 86780; 87522; 87536

== ENCOUNTER 2023-07-04 11:02 | Outpatient (AMB) | payer BC, SELFPAY ==
--- NOTE | 2023-07-04 11:04 | MHC.OFFVIS ---
Vital Signs 07/04/23 11:09 Height 5 ft 4 in Weight 226 lb BMI 38.8 Pulse 72 Pulse Source Pulse Oximeter Pulse Oximetry (%) 98 Oxygen Delivery Method Room Air Intake Visit Reasons: 6 mth.f/u, HIV Allergies amoxicillin Allergy (Unknown, Verified 07/04/23 11:09) hives HPI HPI 6 mth.f/u, HIV: Details: He has CD4 count 752 and viral load undetectable on 06/22. He has no complaints. [facility] Medical History PONV (postoperative nausea and vomiting) High triglycerides Dyslipidemia HTN (hypertension) Hepatitis C High body mass index (BMI) HIV (human immunodeficiency virus infection) Surgical History [place] teeth extracted History of ear surgery Family History Mother Lung cancer Colon cancer Mental health disorder Paternal Grandfather Colon cancer Other Substance use disorder Social History Housing: Apartment Are you a primary managed care liaison to a significant other at home: No Do you presently have visiting nurse or other home services: No Alcohol intake: current Alcohol intake frequency: holidays/special occasions only Patient Tobacco Use Status: Never used Tobacco e-Cigarette/Vaping Use: Never Used Second Hand Smoke Exposure: No Current occupational status: employed Cognitive needs: No Hearing needs: No Vision needs: No Review of Systems Const All systems reviewed & are unremarkable except as noted in HPI and below Physical Exam Vital Signs: Last Vital Signs Pulse 72 07/04/23 11:09 Pulse Ox 98 07/04/23 11:09 Oxygen Delivery Method Room Air 07/04/23 11:09 BMI result Body Mass Index 38.8 Const General: cooperative Orientation/consciousness: patient oriented x3 HEENT Head: Yes normal to inspection Mouth: Normal oral and palatal mucosa present Eyes General: appearance normal, both eyes and all related structures Pupils: Equal, round and reactive pupils present Resp Effort & Inspection: normal respiratory effort Cardio Rate: regular rate Rhythm: regular rhythm GI Palpation (GI): Soft to palpation and nontender General: Yes no CVA tenderness Back/Spine/Pelvis Back: no CVA tenderness Skin General skin exam: no rashes or lesions noted Neuro General: patient oriented x3 Cranial nerves: Yes CN's II-XII intact bilaterally and Yes Equal, round and reactive pupils present Extrem General: Yes normal to inspection Psych Appearance: grossly normal Assessment & Plan Assessment & Plan (1) HIV (human immunodeficiency virus infection): Comment: He is doing well on Descovy and Tivicay. He has no complaints He is up to date on healthcare maintenance strategies Code(s): B20 - Human immunodeficiency virus [HIV] disease Category: Medical Plan: Continue current care. Check labs in six months and see patient. Medication ordered. Orders: Orders HIV-1 RNA QN PCR Expanded 6 Months B20 - Human immunodeficiency virus [HIV] disease Hepatitis C Viral Load 07/04/23 B20 - Human immunodeficiency virus [HIV] disease Lymphocyte Subset Panel 3 6 Months B20 - Human immunodeficiency virus [HIV] disease Syphilis Screen 6 Months B20 - Human immunodeficiency virus [HIV] disease Medications: Refilled dolutegravir (Tivicay) 50 mg PO DAILY 30 tabs 5RF 30 days emtricitabine-tenofovir alafen 200-25 mg (Descovy) 1 tab PO DAILY 30 tabs 5RF 30 days Coding Level of Care Code Est Pt Level 4 (34405) Diagnoses HIV (human immunodeficiency virus infection) B20
[2023-07-04 11:09] VITALS: PULSE 72; O2SAT 98; BMI 38.8
== END 2023-07-04 11:48 | disposition home or self-care (01) ==
PROVIDERS: PCP Nurse Practitioner Family; Visit Provider Internal Medicine
DX: B20 Human immunodeficiency virus [HIV] disease (principal)
CPT/HCPCS: 99214

== ENCOUNTER → 2023-07-04 11:02 | Outpatient (BNVA) | payer BC, SELFPAY | PROVIDERS: PCP Nurse Practitioner Family; Visit Provider Internal Medicine ==

== ENCOUNTER 2023-12-22 07:06 | Outpatient (REF) | payer BC, SELFPAY ==
[2023-12-22 07:14] LABS: MANUAL DIFF FLAG NO
[2023-12-22 07:39] LABS: Basophils Absolute Auto 0.1 X10*3/uL (0.0-0.2); Basophils Percent Auto 1.2 % (0-2); Eosinophils Absolute Auto 0.2 X10*3/uL (0.0-0.4); Eosinophils Percent Auto 2.7 % (0-4); Hematocrit 42.3 % (42.0-52.0); Hemoglobin 15.1 g/dl (14.0-18.0); Imm Gran Abs Auto 0.03 X10*3/uL (0.00-0.03); Imm Gran Pct Auto 0.5 % (0.0-0.4); Lymphocytes Absolute Auto 2.3 X10*3/uL (1.2-4.9); Lymphocytes Percent Auto 38.4 % (20-40); Mean Corpuscular HGB Conc 35.7 g/dl (31.0-36.0); Mean Corpuscular Hemoglobin 32.1 pg (27.0-33.0); Mean Platelet Volume 10.2 fL (9.4-12.4); Monocytes Absolute Auto 0.6 X10*3/uL (0.1-1.2); Monocytes Percent Auto 10.1 % (2-11); Neutrophils Absolute Auto 2.8 x10*3/uL (2.0-8.3); Neutrophils Percent Auto 47.1 % (45-73); Platelet Count 167 X10*3/uL (160-400); Red Cell Distribution Width 12.2 % (11.0-16.0); White Blood Count 5.9 X10*3/uL (4.8-10.8)
[2023-12-22 09:10] LABS: Syphilis Screen Nonreactive (Nonreactive)
[2023-12-25 10:58] LABS: HCV Log PCR <1.18 NOT DETECTED Log IU/mL (NOT DETECTED); HepC Viral Load <15 NOT DETECTED IU/mL (NOT DETECTED)
[2023-12-25 16:18] LABS: HIV RNA PCR Qn Copies 36 copies/mL (NOT DETECTED); HIV RNA PCR Qn Log Copies 1.56 (NOT DETECTED)
[2023-12-26 17:13] LABS: Absolute CD3 Count 1870 cells/uL (840-3060); Absolute CD4 Count 935 cells/uL (490-1740); Absolute CD8 Count 975 cells/uL (180-1170); Absolute Lymphocytes 2296 cells/uL (850-3900); CD4 CD8 Ratio 0.96 (0.86-5.00); Percent CD3 Cells 81 % (57-85); Percent CD4 Cells 41 % (30-61); Percent CD8 Cells 42 % (12-42)
== END 2023-12-22 07:07 | disposition home or self-care (01) ==
LOC: HO.LAB 07:06
PROVIDERS: PCP Nurse Practitioner Family; Visit Provider Internal Medicine
DX: B20 Human immunodeficiency virus [HIV] disease (principal)
CPT/HCPCS: 36415; 85025; 86359; 86360; 86780; 87522; 87536

== ENCOUNTER 2024-01-02 11:15 | Outpatient (AMB) | payer BC, SELFPAY ==
--- NOTE | 2024-01-02 11:16 | MHC.OFFVIS ---
Vital Signs 01/02/24 11:24 Height 5 ft 4 in Weight 235 lb BMI 40.3 Pulse 88 Pulse Source Pulse Oximeter Pulse Oximetry (%) 98 Oxygen Delivery Method Room Air Intake Visit Reasons: 6 mth.f/u, HIV Allergies amoxicillin Allergy (Unknown, Verified 01/02/24 11:24) hives HPI HPI 6 mth.f/u, HIV: Details: He has been doing well. He takes Tivicay and Descovy. He has CD4 count of 935 and viral load undetectable on 12/22/2023. He is wondering about taking semaglutide and has no contraindications eith Descovy and Truvada. [facility] Medical History PONV (postoperative nausea and vomiting) High triglycerides Dyslipidemia HTN (hypertension) Hepatitis C High body mass index (BMI) HIV (human immunodeficiency virus infection) Surgical History [place] teeth extracted History of ear surgery Family History Mother Lung cancer Colon cancer Mental health disorder Paternal Grandfather Colon cancer Other Substance use disorder Social History Housing: Apartment Are you a primary acute care clinical nurse specialist to a significant other at home: No Do you presently have visiting nurse or other home services: No Alcohol intake: current Alcohol intake frequency: holidays/special occasions only Patient Tobacco Use Status: Never used Tobacco e-Cigarette/Vaping Use: Never Used Second Hand Smoke Exposure: No Current occupational status: employed Cognitive needs: No Hearing needs: No Vision needs: No Review of Systems Const All systems reviewed & are unremarkable except as noted in HPI and below Physical Exam Vital Signs: Last Vital Signs Pulse 88 01/02/24 11:24 Pulse Ox 98 01/02/24 11:24 Oxygen Delivery Method Room Air 01/02/24 11:24 BMI result Body Mass Index 40.3 Const General: cooperative Orientation/consciousness: patient oriented x3 HEENT Head: Yes normal to inspection Mouth: Normal oral and palatal mucosa present Eyes General: appearance normal, both eyes and all related structures Pupils: Equal, round and reactive pupils present Resp Effort & Inspection: normal respiratory effort Cardio Rate: regular rate Rhythm: regular rhythm GI Palpation (GI): Soft to palpation and nontender General: Yes no CVA tenderness Back/Spine/Pelvis Back: no CVA tenderness Skin General skin exam: no rashes or lesions noted Neuro General: patient oriented x3 Cranial nerves: Yes CN's II-XII intact bilaterally and Yes Equal, round and reactive pupils present Extrem General: Yes normal to inspection Psych Appearance: grossly normal Assessment & Plan Assessment & Plan (1) HIV (human immunodeficiency virus infection): Comment: He is doing well on Descovy and Tivicay. He has no complaints He is up to date on healthcare maintenance strategies He doesnt want to switch Code(s): B20 - Human immunodeficiency virus [HIV] disease Category: Medical Plan: Would continue Tivicay and Descovy. See in six months and labs then Rectal Pap at next visit. Continue statins as HIV risk independent for CAD. Orders: Orders Lymphocyte Subset Panel 3 6 Months B20 - Human immunodeficiency virus [HIV] disease Syphilis Screen 6 Months B20 - Human immunodeficiency virus [HIV] disease Hepatitis C Viral Load 6 Months B20 - Human immunodeficiency virus [HIV] disease HIV-1 RNA QN PCR Expanded 6 Months B20 - Human immunodeficiency virus [HIV] disease Medications: Refilled emtricitabine-tenofovir alafen 200-25 mg (Descovy) 1 tab PO DAILY 30 tabs 5RF 30 days dolutegravir (Tivicay) 50 mg PO DAILY 30 tabs 5RF 30 days dolutegravir (Tivicay) 50 mg PO DAILY 30 tabs 5RF 30 days emtricitabine-tenofovir alafen 200-25 mg (Descovy) 1 tab PO DAILY 30 tabs 5RF 30 days Coding Level of Care Code Est Pt Level 4 (12488) Diagnoses HIV (human immunodeficiency virus infection) B20
[2024-01-02 11:24] VITALS: PULSE 88; O2SAT 98; BMI 40.3
== END 2024-01-02 15:20 | disposition home or self-care (01) ==
PROVIDERS: PCP Nurse Practitioner Family; Visit Provider Internal Medicine
DX: B20 Human immunodeficiency virus [HIV] disease (principal)
CPT/HCPCS: 99214

== ENCOUNTER 2024-02-28 13:32 | Outpatient (AMB) | payer BC, SELFPAY ==
[2024-02-28 13:43] VITALS: BP 132/70; PULSE 78; O2SAT 95; BMI 40.2
--- NOTE | 2024-02-28 13:43 | A.OFFPC_ITS ---
Vital Signs 02/28/24 13:43 Height 5 ft 4 in Weight 234 lb BMI 40.2 BP 132/70 Blood Pressure Location Rt brachial Position Sitting Pulse 78 Pulse Source Pulse Oximeter Pulse Oximetry (%) 95 Intake Visit Reasons: PE Intake Note: pt is here for PE Hotel Houseman Required: No Accompanied by: Self / Same As Patient Allergies amoxicillin Allergy (Unknown, Verified 02/28/24 13:43) hives Tobacco use date assessed: 02/28/24 Dental Screening Dental Screen Date: 02/28/24 Did you have a dental visit in the last 12 months?: Yes Did you have a dental problem in the last 6 months where you did not have access to dental care?: No Was dental information given to patient?: Patient has dentist HPI PE HPI Details History of Present Illness The patient is a 53-year-old male presenting with the need for a physical examination. His medical history includes Hepatitis C Virus (HCV) infection and Human Immunodeficiency Virus (HIV) infection, for which he is under follow-up with infectious disease specialists. The patient has struggled with obesity, currently having a Body Mass Index (BMI) of 40.2. He has attempted weight reduction through diet and exercise, though with minimal success indicated by a negligible reduction in weight and BMI. There have been no associated symptoms such as chest pain, shortness of breath, constipation, diarrhea, blood in stool, numbness, or tingling. Additionally, the patient denies experiencing any suicidal ideation, homicidal thoughts, anxiety, or depression. Health Maintenance - Discussion on weight management throug h diet and exercise. - Evaluation of obesity management, with consideration for initiation of Wegovy. Social History - The patient has actively tried diet an d exercise for weight management. Review of Systems - Cardiovascular: Denies chest pain. - Respiratory: Denies shortness of breat h. - Gastrointestinal: Denies constipation, diarrhea, or blood in stool. - Neurological: Denies numbness or tingl ing. - Psychiatric: Denies suicidal ideation, homicidal thoughts, anxiety, or depression. Physical Exam General: Cooperative, healthy appearing, comfortable, no acute distress and well developed, morbidly obese Orientation: Patient oriented x3 Limitations: No limitations Head: Normal to inspection Ears: Hearing grossly normal bilaterally Nose: Normal external nose present Face and sinus: Normal facial exam Eyes: Appearance normal, both eyes and all related structures Neck: Normal visual inspection and Yes full ROM Respiratory: Normal respiratory effort and able to speak in complete sentences. Clear to auscultation bilaterally Cardiovascular: Regular rate and rhythm. Normal S1 and S2 GI: Normal to inspection. Soft to palpation and nontender. Digital rectal exam revealed a smooth prostate without nodules, not enlarged Skin: No rashes or lesions noted Neuro: Patient oriented x3 Extremities: Normal to inspection, no edema noted Results Plan - Initiate prescription for Wegovy for w eight management. The prescription will be sent to the patient's pharmacy. - Continue follow-up with infectious dis ease specialists for management of Hepatitis C Virus and HIV infections. Patient was informed and verbally consented to the use of an ambient scribe for clinic note documentation during this visit. Discussion Notes I discussed with the patient the suitability of starting Wegovy as an adjunct to his diet and exercise plan to assist in weight management, given his high BMI and minimal success with weight loss efforts. We evaluated the potential benefits of Wegovy, including its role in weight reduction, and discussed possible side effects and contraindications. The patient consented to this management approach, and I have sent the prescription to his pharmacy. We also reinforced the importance of continued follow-up with infectious disease concerning his Hepatitis C and HIV infections. Patient Instructions - Start Wegovy as prescribed for weight management. - Maintain current diet and exercise rou akthy to aid in weight loss. - Follow up with your infectious disease specialist regularly for Hepatitis C and HIV management. - Report any new or worsening symptoms i mmediately. [facility] Medical History PONV (postoperative nausea and vomiting) High triglycerides Dyslipidemia HTN (hypertension) Hepatitis C High body mass index (BMI) HIV (human immunodeficiency virus infection) Surgical History [place] teeth extracted History of ear surgery Family History Mother Lung cancer Colon cancer Mental health disorder Paternal Grandfather Colon cancer Other Substance use disorder Social History Housing: Apartment Are you a primary health care facilities inspector to a significant other at home: No Do you presently have visiting nurse or other home services: No Alcohol intake: current Alcohol intake frequency: holidays/special occasions only Patient Tobacco Use Status: Never used Tobacco e-Cigarette/Vaping Use: Never Used Second Hand Smoke Exposure: No Current occupational status: employed Cognitive needs: No Hearing needs: No Vision needs: No Questionnaire PHQ-9 Over the last 2 weeks, how often have you been bothered by any of the following problems? 1. Little interest or pleasure in doing things: not at all 2. Feeling down, depressed, or hopeless: not at all 3. Trouble falling or staying asleep, or sleeping too much: not at all 4. Feeling tired or having little energy: not at all 5. Poor appetite or overeating: not at all 6. Feeling bad about yourself - or that you are a failure or have let yourself or your family down: not at all 7. Trouble concentrating on things, such as reading the newspaper or watching television: not at all 8. Moving or speaking so slowly that other people could have noticed. Or the opposite - being so fidgety or restless that you have been moving around a lot more than usual: not at all 9. Thoughts that you would be better off or of hurting yourself in some way: not at all Total score: 0 Depression Screening Interpretation: Negative Depression Screening Done: Yes 34189 - PHQ-9 Billing: Yes Source: Developed by Drs. Gary Mckeon, Jesica Edmond, Aj Pitts and colleagues, with an educational anamaria from [employer]. Thrive Questionnaire Date Thrive assessed: 02/28/24 I am a: Patient What is your living situation today?: I have a steady place to live Within the past 12 months, did the food you bought not last and you didn't have the money to get more?: Never true Within the past 12 months, did you worry whether your food would run out before you got money to buy more?: Never true Do you have trouble paying for medicines?: No Do you have trouble getting transportation to medical appointments?: No Do you have trouble paying your heating and electricity bill?: No Do you have trouble taking care of your child, family member or friend?: No Do you have trouble with day-to-day activities such as bathing, preparing meals, shopping, managing finances, etc.?: No Are you currently unemployed and looking for a job?: No Are you interested in more education?: No Please select the resources that you would like help with: None Currently or been in a relationship where the following occur: No concerns reported THRIVE Score: 0 AUDIT C Alcohol Use Questionnaire (AUDIT-C) 1. How often do you have a drink containing alcohol?: Monthly or less 2. How many drinks containing alcohol do you have on a typical day when you are drinking?: 1 or 2 3. How often do you have six or more drinks on one occasion?: Never Total Score: 1 Score Reviewed/Action Taken: Yes BRISA-7 AMB Questionnaire BRISA-7 Date BRISA - 7 assessed: 02/28/24 Feeling nervous, anxious, or on edge: 0 = Not at all Not being able to stop or control worryin = Not at all Worrying too much about different things: 0 = Not at all Trouble relaxin = Not at all Being so restless that it is hard to sit still: 0 = Not at all Becoming easily annoyed or irritable: 0 = Not at all Feeling afraid as if something awful might happen: 0 = Not at all Total BRISA-7 score (0-4 normal; 5-9 mild; 10-14 moderate; 15-21 severe): 0 Source: Developed by Drs. Gary Mckeon, Jesica Edmond, Aj Pitts and colleagues, with an educational anamaria from [employer]. BRISA-7 Assessment Billing BRISA-7 Assessment Tool: BRISA-7 Assessment 25419 Physical exam (Primary Care) Vital Signs: Last Vital Signs Pulse 78 02/28/24 13:43 BP 132/70 02/28/24 13:43 Pulse Ox 95 02/28/24 13:43 BMI result Body Mass Index 40.2 Tobacco/Smoking Status: Tobacco use Status Tobacco use date assessed 02/28/24 02/28/24 13:43 Patient Tobacco Use Status Never used Tobacco 02/28/24 13:43 e-Cigarette/Vaping Use Never Used 02/28/24 13:43 PHQ-9: PHQ-9 Score PHQ-9: Total score 0 02/28/24 14:33 Depression Screening Interpretation: Negative Thrive Assessment: Date of Thrive Assessment Date Thrive assessed 02/28/24 02/28/24 13:43 Currently or been in a relationship where the following occur: No concerns reported Immunizations pneumoc 20-johana conj-dip cr(PF) 0.5 mL IM syringe Performing Provider: AMY Saleh Performing Location: [facility] Administered by: Sharan Epstein CMA on 02/28/24 14:33 Dose Route Admin Location Dispensed Lot Number Expiration Date [facility] Patient Accounts Manager 0.5 mL IM Left Deltoid 0.5 mL [id number] 06/08/25 [employer] VIS Given Date VIS Provided VIS Publication Date 02/28/24 Single Vaccine 21 Eligibility Eligibility Date Funding Source Not [facility] Eligible 02/28/24 Private Coding Level of Care Code Est Pt Prev Care 40-64y(50122) Diagnoses Physical exam Z00.00 Screening PSA (prostate specific antigen) Z12.5 Additional Codes BRISA-7 Assessment Billing - BRISA-7 Assessment Tool: BRISA-7 Assessment 01278 ([id number]) PHQ-9 - 14151 - PHQ-9 Billing: Yes ([id number]) Assessment & Plan Assessment & Plan (1) Physical exam: Code(s): Z00.00 - Encounter for general adult medical examination without abnormal findings Category: Medical (2) Screening PSA (prostate specific antigen): Code(s): Z12.5 - Encounter for screening for malignant neoplasm of prostate Category: Medical Plan . Orders: Orders Complete Blood Count Auto Diff Today Z00.00 - Encounter for general adult medical examination without abnormal findings Comprehensive [place]. Panel Fast Today Z00.00 - Encounter for general adult medical examination without abnormal findings TSH reflex Free T4 Today Z00.00 - Encounter for general adult medical examination without abnormal findings Prostate Specific Antigen Scr Today Z12.5 - Encounter for screening for maligna nt neoplasm of prostate UA CC w/rflx Micro + Cult Today Z00.00 - Encounter for general adult medical examination without abnormal findings Lipid Panel Today Z00.00 - Encounter for general adult medical examination without abnormal findings Pneumococcal 20 Immunization Today Z23 - Encounter for immunization Medications: New semaglutide (weight loss) (Wegovy) administer weeks 1 through 4 of therapy 0.25 mg (0.5 mL) subcut QWEEK 2 mL 0RF
== END 2024-02-28 14:40 | disposition home or self-care (01) ==
PROVIDERS: PCP Nurse Practitioner Family; Visit Provider Nurse Practitioner Family
DX: Z00.00 Encounter for general adult medical examination without abnormal findings (principal); Z12.5 Encounter for screening for malignant neoplasm of prostate; Z23 Encounter for immunization

== ENCOUNTER → 2024-02-28 13:32 | Outpatient (BNVA) | payer BC, SELFPAY | PROVIDERS: PCP Nurse Practitioner Family; Visit Provider Nurse Practitioner Family | DX: Z00.00 Encounter for general adult medical examination without abnormal findings (principal); Z23 Encounter for immunization; Z21 Asymptomatic human immunodeficiency virus [HIV] infection status; B19.20 Unspecified viral hepatitis C without hepatic coma; E66.9 Obesity, unspecified; Z68.41 Body mass index [BMI] 40.0-44.9, adult | CPT/HCPCS: 90471; 90677; 96127 ==

== ENCOUNTER 2024-06-02 07:33 | Outpatient (REF) | payer BC, SELFPAY ==
--- OUTSIDE RECORDS SUMMARY | 2024-06-02 07:36 | XMS_ITS | Patient Health Record ---
Author Organization [facility] Address [address] [place] [address] Care Team Providers Care Equipment Detailer Name Role Phone Shaneantonio Thomas Primary Care Provider SHANDA Monaco Unavailable [phone] REASON FOR REFERRAL Diagnosis 1 Morbid obesity due t o excess calories (E66.01) Referring Provider First Name Thomas Referring Provider Last Name Aelssiajayantonio Referred Organization [facility] Referred Provider CURT AMOS Referred Address [address] [place], [place],[address], Referred Provider Specialty Internal Med icine Referral Priority Routine PROBLEMS Problem Type ICD Code Onset Dates Problem Status W/U Status Risk SNOMED Code Notes Problem Morbid obesity due to excess calories (E66.01) Active confirmed Morbid obesity (296750480) Encounters Encounter Location Date Provider Diagnosis [facility] [address] [facility] [address] [place] [address] 01/02/2024 SHANDA GAMBLE PLAN OF TREATMENT No Information Insurance Providers Payer Name Payer Address Payer Phone Subscriber Number Group Number Insured Name Patient Relationship to Insured Coverage Start Date Coverage End Date [facility] [address] [place] [address] [id number] Gus Antonio Self - patient is the insured
--- OUTSIDE RECORDS SUMMARY | 2024-06-02 07:36 | XMS_ITS ---
Author Organization [facility] Address [address] [place] [address] Care Team Providers Care Duralumin Metalworker Name Role Phone Thomas Whittington Primary Care Provider SHANDA Monaco [phone] Encounters Encounter Location Date Provider Diagnosis [facility] [address] [address] 01/02/2024 SHANDA GAMBLE PLAN OF TREATMENT No Information Progress Notes * Antonio MALDONADODOB:1970 (53 yo M)Acc No.[id number]:01/02/2024 Patient:??Antonio MALDONADO Provider:??SHANDA GAMBLE :1970?Age:53 Y?Sex:Ma le Date:01/02/2024 Address:[address] [place], [place] [id number] Pcp:Thomas Whittington Subjective: * Chief Complaints: * ? * Medical History:?? Objective: Assessment: Plan: * Treatment: * Procedure Codes:??37161 NO S HOW OFFICE VISIT * Images: Billing Information: * Visit Code:?? * Procedure Codes:?? 00453 NO SHOW OFFICE VISIT. * Sign off status: Pending * Provider:??SHANDA GAMBLE Date:?? 024
--- OUTSIDE RECORDS SUMMARY | 2024-06-02 07:36 | XMS_ITS | Clinical Summary ---
Author Organization [facility] Address [address] [place] [address] Care Team Providers Care Client Technical Support Associate Name Role Phone Unavailable Primary Care Provider Unavailabl e Allergies Active Allergy Reactions Criticality Noted Date Comments Amoxicillin 08/24/2023 Medications atorvastatin (Lipitor) 10 MG tablet TAKE 1 TAB BY MOUTH EVERY DAY Active sertraline (Zoloft) 50 MG tablet Take 50 mg by mouth Once per day. 06/13/2023 Active lisinopril 5 MG tablet Take 5 mg by mouth Once per day. 06/09/2023 Active omega-3 acid ethyl esters (Lovaza) 1 g capsule Take 1 g by mouth 2 times daily. 06/26/2023 Active Dolutegravir Sodium (TIVICAY PO) Take by mouth. 2018 Active Tivicay 50 MG tablet TAKE 1 TABLET ORALLY DAILY FOR 30 DAYS 08/02/2023 Active Descovy 200-25 MG tablet Take 1 tablet by mouth Once per day. 08/02/2023 Active Active Problems No known active problems Social History Tobacco Use Types Packs/Day Years Used Date Smoking Tobacco: Never Smokeless Tobacco: Never Tobacco Cessation:Counseling Given: Not Answered Alcohol Use Standard Drinks/Week Comments Never 0 (1 standard drink = 0.6 oz pur e alcohol) Sex and Gender Information Value Date Recorded Sex Assigned at Male 08/24/2023 9:12 AM EDT Legal Sex Male 9:07 AM EDT Gender Identity Male 08/24/2023 9:12 AM EDT Sexual Orientation Choose not to disclose 2023 9:12 AM EDT Last Filed Vital Signs Vital Sign Reading Time Taken Comments Blood Pressure 120/50 08/29/2023 1:05 PM EDT Pulse - - Temperature - - Respiratory Rate - - Oxygen Saturation - - Inhaled Oxygen Concentration - - Weight - - Height - - Body Mass Index - - Plan of Treatment Health Maintenance Due Date Last Done Comments CT Colonography 1968 Colonoscopy 1968 Colorectal Cancer Screening 1968 Dental Oral Exam 1968 Dental Prophylaxis 1968 Dental X-Ray: Bitewings 1968 Dental X-Ray: Full Mouth 1968 Depression Screening 1968 FIT DNA/Cologuard 1968 FIT 1968 FOBT 1968 HIV Screening 1968 Lipid Panel 1968 SDOH Screening 1968 Sigmoidoscopy 1968 Alcohol/Substance Use Screening 1980 Hepatitis C Screening 1986 Hepatitis B Vaccines (3 of 3 - 19+ 3-dose series) 07/03/2016 02/01/2016, 01/04/2016 Zoster Vaccines (1 of 2) 2018 Pneumococcal Vaccine: 50+ Years (2 of 2 - PCV) 03/10/2022 03/10/2021, 01/04/2016 COVID-19 Vaccine (6 - 2023- season) 2023 12/11/2022, 01/07/2022, 12/13/2020, Additional history exists Influenza Vaccine (#1) 2023 , 01/07/2022, 12/13/2020, Additional history exists Tobacco Screening 08/28/2024 08/29/2023 DTaP/Tdap/Td Vaccines (2 - Td or Tdap) 01/07/2030 01/08/2020 RSV Patients and Patients Aged 60 years or older (1 - 1-dose 75+ series) 12/31/2043 HIB Vaccines Aged Out No longer eligi ble based on patient's age to complete this topic HPV Vaccines Aged Out No longer eligi ble based on patient's age to complete this topic Hepatitis A Vaccines Aged Out No long er eligible based on patient's age to complete this topic IPV Vaccines Aged Out No longer eligi ble based on patient's age to complete this topic Meningococcal Vaccine Aged Out No jacqueline blanquita eligible based on patient's age to complete this topic RSV under 20 months Aged Out No longe r eligible based on patient's age to complete this topic Rotavirus Vaccines Aged Out No longer eligible based on patient's age to complete this topic Insurance DENTAL - [facility]
[2024-06-02 07:49] LABS: MANUAL DIFF FLAG NO
[2024-06-02 08:09] LABS: Basophils Absolute Auto 0.1 X10*3/uL (0.0-0.2); Basophils Percent Auto 0.8 % (0-2); Eosinophils Absolute Auto 0.1 X10*3/uL (0.0-0.4); Eosinophils Percent Auto 1.8 % (0-4); Hematocrit 44.6 % (42.0-52.0); Hemoglobin 15.4 g/dl (14.0-18.0); Imm Gran Abs Auto 0.03 X10*3/uL (0.00-0.03); Imm Gran Pct Auto 0.5 % (0.0-0.4); Lymphocytes Absolute Auto 2.1 X10*3/uL (1.2-4.9); Lymphocytes Percent Auto 32.5 % (20-40); Mean Corpuscular HGB Conc 34.5 g/dl (31.0-36.0); Mean Corpuscular Hemoglobin 31.4 pg (27.0-33.0); Mean Corpuscular Volume 90.8 fL (80.0-98.0); Monocytes Absolute Auto 0.5 X10*3/uL (0.1-1.2); Monocytes Percent Auto 8.2 % (2-11); Neutrophils Absolute Auto 3.7 x10*3/uL (2.0-8.3); Neutrophils Percent Auto 56.2 % (45-73); Platelet Count 205 X10*3/uL (160-400); Red Blood Count 4.91 X10*6/uL (4.60-5.80); Red Cell Distribution Width 12.1 % (11.0-16.0); White Blood Count 6.6 X10*3/uL (4.8-10.8)
[2024-06-02 08:12] LABS: Appearance Urine Clear; Color Urine Yellow; Glucose Urine UA Negative (Negative); Leukocyte Esterase Urine Negative (Negative); Nitrite Urine Negative (Negative); PH 5.5 (5.0-9.0); Specific Gravity - Urine 1.025 (1.005-1.025); UMIC TRIGGER UACC YES; Urine Blood Small (1+) (Negative); Urine Ketones Trace mg/dL (Negative); Urine Protein Negative (Neg-Trace)
[2024-06-02 08:24] LABS: Bacteria Urine None Seen (None Seen); RBC Urine 0-2 /HPF (0-2); Squamous Epithelial Cell Urine 0-2 /HPF (0-2); WBC Urine 0-5 /HPF (0-5)
[2024-06-02 09:03] LABS: Alanine Aminotransferase 70 U/L (0-40); Albumin Level 4.5 g/dL (3.5-5.0); Alkaline Phosphatase 59 U/L (39-117); Anion Gap 9 (12-20); Aspartate Amino Transferase 39 U/L (5-37); Bilirubin Total 0.8 mg/dL (0.0-1.0); Blood Urea Nitrogen 17 mg/dL (9-16); Calcium 9.8 mg/dL (8.4-10.2); Carbon Dioxide 26 mmol/L (22-29); Chloride 109 mmol/L (96-108); Cholesterol 130 mg/dL (<200); Estimated Glomerular Filt Rate > 60; Glucose Fasting 93 mg/dL (60-99); HDL Cholesterol 34 mg/dL (>40); LDL Cholesterol Calculated 53 mg/dL (<100); Potassium 4.4 mmol/L (3.3-5.1); Sodium 140 mmol/L (135-145); Triglycerides 216 mg/dL (<150)
[2024-06-02 09:05] LABS: TSH reflex Free T4 2.54 uIU/mL (0.32-4.0)
[2024-06-02 09:06] LABS: Syphilis Screen Nonreactive (Nonreactive)
[2024-06-02 09:10] LABS: Prostate Specific Antigen Scr 0.93 ng/mL (<0.05-4.0)
[2024-06-03 19:48] LABS: HCV Log PCR <1.18 NOT DETECTED Log IU/mL (NOT DETECTED); HepC Viral Load <15 NOT DETECTED IU/mL (NOT DETECTED)
[2024-06-04 12:29] LABS: HIV RNA PCR Qn Copies 41 copies/mL (NOT DETECTED); HIV RNA PCR Qn Log Copies 1.61 (NOT DETECTED)
[2024-06-05 17:39] LABS: Absolute CD3 Count 1852 cells/uL (840-3060); Absolute CD4 Count 965 cells/uL (490-1740); Absolute CD8 Count 901 cells/uL (180-1170); Absolute Lymphocytes 2318 cells/uL (850-3900); CD4 CD8 Ratio 1.07 (0.86-5.00); Percent CD3 Cells 80 % (57-85); Percent CD4 Cells 42 % (30-61); Percent CD8 Cells 39 % (12-42)
== END 2024-06-02 07:34 | disposition home or self-care (01) ==
LOC: HO.LAB 07:33
PROVIDERS: Absent Provider Internal Medicine; PCP Nurse Practitioner Family; Visit Provider Nurse Practitioner Family
DX: B20 Human immunodeficiency virus [HIV] disease (principal); Z00.00 Encounter for general adult medical examination without abnormal findings; Z12.5 Encounter for screening for malignant neoplasm of prostate
CPT/HCPCS: 36415; 80053; 80061; 81001; 84153; 84443; 85025; 86359; 86360; 86780; 87522; 87536

== ENCOUNTER 2024-06-21 07:45 | Outpatient (REF) | payer BC, SELFPAY ==
--- OUTSIDE RECORDS SUMMARY | 2024-06-21 07:47 | XMS_ITS ---
Author Organization [facility] Address [address] [place] [address] Care Team Providers Care Computer Lab Assistant Name Role Phone Thomas Whittington Primary Care Provider SHANDA Monaco [phone] Encounters Encounter Location Date Provider Diagnosis [facility] [address] [address] 01/02/2024 SHANDA GAMBLE PLAN OF TREATMENT No Information Progress Notes * Antonio MALDONADODOB:1970 (53 yo M)Acc No.[id number]:01/02/2024 Patient:??Antonio MALDONADO Provider:??SHANDA GAMBLE :1970?Age:53 Y?Sex:Ma le Date:01/02/2024 Address:[address] [place], [place] [phone] Pcp:Thomas Whittington Subjective: * Chief Complaints: * ? * Medical History:?? Objective: Assessment: Plan: * Treatment: * Procedure Codes:??50263 NO S HOW OFFICE VISIT * Images: Billing Information: * Visit Code:?? * Procedure Codes:?? 61692 NO SHOW OFFICE VISIT. * Sign off status: Pending * Provider:??SHANDA GAMBLE Date:?? 024
--- OUTSIDE RECORDS SUMMARY | 2024-06-21 07:47 | XMS_ITS | Clinical Summary ---
Author Organization [facility] Address [address] [place] [address] Care Team Providers Care Mixed Crop And Livestock Farmer Name Role Phone Unavailable Primary Care Provider [...] to complete this topic Insurance DENTAL - [facility]
[2024-06-21 09:16] LABS: Urine Cytology See Pathology rpt
[2024-06-21 09:39] LABS: Appearance Urine Clear; Color Urine Yellow; Glucose Urine UA Negative (Negative); Leukocyte Esterase Urine Negative (Negative); Nitrite Urine Negative (Negative); PH 5.5 (5.0-9.0); Specific Gravity - Urine 1.025 (1.005-1.025); Urine Blood Negative (Negative); Urine Ketones Trace mg/dL (Negative); Urine Protein Negative (Neg-Trace)
[2024-06-24 14:18] LABS: HCV Log PCR <1.18 NOT DETECTED Log IU/mL (NOT DETECTED); HepC Viral Load <15 NOT DETECTED IU/mL (NOT DETECTED)
== END 2024-06-21 07:46 | disposition home or self-care (01) ==
LOC: HO.LAB 07:45
PROVIDERS: PCP Nurse Practitioner Family; Visit Provider Nurse Practitioner Family
DX: B19.20 Unspecified viral hepatitis C without hepatic coma (principal); R31.29 Other microscopic hematuria
CPT/HCPCS: 36415; 81003; 87086; 87522; 87902; 88112

== ENCOUNTER 2024-06-25 16:16 | Outpatient (AMB) | payer BC, SELFPAY ==
[2024-06-25 16:12] VITALS: PULSE 85; O2SAT 98; BMI 38.4
--- NOTE | 2024-06-25 16:12 | A.OFFVIS_ITS ---
Vital Signs 06/25/24 16:12 Height 5 ft 4 in Weight 224 lb BMI 38.4 Pulse 85 Pulse Source Pulse Oximeter Pulse Oximetry (%) 98 Oxygen Delivery Method Room Air Intake Visit Reasons: HIV Allergies amoxicillin Allergy (Unknown, Verified 06/25/24 16:12) hives HPI Comments Details: He has viral load undetectable on 05/29 and CD4 count 1185. [facility] Medical History PONV (postoperative nausea and vomiting) High triglycerides Dyslipidemia HTN (hypertension) Hepatitis C High body mass index (BMI) HIV (human immunodeficiency virus infection) Surgical History [place] teeth extracted History of ear surgery Family History Mother Lung cancer Colon cancer Mental health disorder Paternal Grandfather Colon cancer Other Substance use disorder Social History Housing: Apartment Are you a primary home child care provider to a significant other at home: No Do you presently have visiting nurse or other home services: No Alcohol intake: current Alcohol intake frequency: holidays/special occasions only Patient Tobacco Use Status: Never used Tobacco e-Cigarette/Vaping Use: Never Used Second Hand Smoke Exposure: No Current occupational status: employed Cognitive needs: No Hearing needs: No Vision needs: No Review of Systems Const All systems reviewed & are unremarkable except as noted in HPI and below Physical Exam Vital Signs: Last Vital Signs Pulse 85 06/25/24 16:12 Pulse Ox 98 06/25/24 16:12 Oxygen Delivery Method Room Air 06/25/24 16:12 BMI result Body Mass Index 38.4 Const General: cooperative Orientation/consciousness: patient oriented x3 HEENT Head: Yes normal to inspection Mouth: Normal oral and palatal mucosa present Eyes General: appearance normal, both eyes and all related structures Pupils: Equal, round and reactive pupils present Resp Effort & Inspection: normal respiratory effort Cardio Rate: regular rate Rhythm: regular rhythm GI Palpation (GI): Soft to palpation and nontender General: Yes no CVA tenderness Back/Spine/Pelvis Back: no CVA tenderness Skin General skin exam: no rashes or lesions noted Neuro General: patient oriented x3 Cranial nerves: Yes CN's II-XII intact bilaterally and Yes Equal, round and reactive pupils present Extrem General: Yes normal to inspection Psych Appearance: grossly normal Assessment & Plan Assessment & Plan (1) HIV (human immunodeficiency virus infection): Comment: He is doing well on Descovy and Tivicay. He has no complaints He is up to date on healthcare maintenance strategies He doesnt want to switch Code(s): B20 - Human immunodeficiency virus [HIV] disease Category: Medical Plan: Continue medication Check CD4 count an viral load in November. See in December. Coding Level of Care Code Est Pt Level 3 (86157) Diagnoses HIV (human immunodeficiency virus infection) B20
--- OUTSIDE RECORDS SUMMARY | 2024-06-25 16:33 | XMS_ITS | Clinical Summary ---
Author Organization [facility] Address [address] [place] [address] Care Team Providers Care Script Artist Name Role Phone Unavailable Primary Care Provider [...] to complete this topic Insurance DENTAL - [facility] DENTAL
--- OUTSIDE RECORDS SUMMARY | 2024-06-25 16:33 | XMS_ITS | Patient Health Record ---
Author Organization [facility] Address [address] [place] [address] Care Team Providers Care Conveyor Monitor Name Role Phone Shaneantonio Thomas Primary Care Provider SHANDA Monaco Unavailable [phone] REASON FOR REFERRAL Diagnosis 1 Morbid obesity due t o excess calories (E66.01) Referring Provider First Name Thomas Referring Provider Last Name Nelsy Referred Organization [facility] Referred Provider CURT AMOS Referred Address [address] [place], [place],[address], Referred Provider Specialty Internal Med icine Referral Priority Routine PROBLEMS Problem Type ICD Code Onset Dates Problem Status W/U Status Risk SNOMED Code Notes Problem Morbid obesity due to excess calories (E66.01) Active confirmed Encounters Encounter Location Date Provider Diagnosis [facility] [address] [facility] [address] [place] [address] 01/02/2024 SHANDA GAMBLE PLAN OF TREATMENT No Information Insurance Providers Payer Name Payer Address Payer Phone Subscriber Number Group Number Insured Name Patient Relationship to Insured Coverage Start Date Coverage End Date [facility] [address] [place] [address] [phone] [id number] 4 Gus Antonio Self - patient is the insured
--- OUTSIDE RECORDS SUMMARY | 2024-06-25 16:33 | XMS_ITS ---
Author Organization [facility] Address [address] [place] [address] Care Team Providers Care Travel Administrator Name Role Phone Thomas Whittington Primary Care Provider SHANDA Monaco [phone] Encounters Encounter Location Date Provider Diagnosis [facility] [address] [address] 01/02/2024 SHANDA GAMBLE PLAN OF TREATMENT No Information Progress Notes * Antonio MALDONADODOB:1970 (53 yo M)Acc No.[id number]:01/02/2024 Patient:??Antonio MALDONADO Provider:??SHANDA GAMBLE :1970?Age:53 Y?Sex:Ma le Date:01/02/2024 Address:[address] [place], [place] [phone] Pcp:Thomas Whittington Subjective: * Chief Complaints: * ? * Medical History:?? Objective: Assessment: Plan: * Treatment: * Procedure Codes:??48305 NO S HOW OFFICE VISIT * Images: Billing Information: * Visit Code:?? * Procedure Codes:?? 12608 NO SHOW OFFICE VISIT. * Sign off status: Pending * Provider:??SHANDA GAMBLE Date:?? 024
== END 2024-06-25 17:27 | disposition home or self-care (01) ==
LOC: HO.HID 16:16
PROVIDERS: PCP Nurse Practitioner Family; Visit Provider Internal Medicine
DX: B20 Human immunodeficiency virus [HIV] disease (principal)
CPT/HCPCS: 99213

== ENCOUNTER → 2024-06-25 16:16 | Outpatient (BNVA) | payer BC, SELFPAY | PROVIDERS: PCP Nurse Practitioner Family; Visit Provider Internal Medicine ==

== ENCOUNTER 2024-07-01 09:02 | Outpatient (REF) | payer BC, SELFPAY ==
--- NOTE | ~2024-07-01 | US_ITS ---
CLINICAL HISTORY: R74.8 - Abnormal levels of other serum enzymes --- Additional Notes or Special Inst ructions: Elevated liver enzymes US abdomen complete Comparison: 12/13/2022 Findings: The visualized pancreas is normal. Liver measures 15.4 cm in length and demonstrates mildly coarse echotexture There is no intrahepatic bile duct dilatation. The common duct is 2 mm in diameter. 6 mm (versus 4 mm previously) gallbladder polyp and redemonstration of focal fundal adenomyomatosis. There is no sonographic To sign. The main portal vein is antegrade. The right kidney is 11.4. cm in length. The left kidney is 10.8 cm in length. Unremarkable kidneys without hydronephrosis. The spleen is normal. Spleen measures 11.3 cm in length. No ascites. IMPRESSION: Mildly coarse hepatic echotexture may be incidental or due to parenchymal disease. LFT correlation recommended. 6 mm (versus 4 mm previously) gallbladder polyp and redemonstration of focal fundal adenomyomatosis. -------- Society of Radiologists in Ultrasound guidelines (2020) The Society of Radiologists in Ultrasound (SRU) found no link between gallbladder carcinoma and polyps 17. Most gallbladder cancers arise from flat dysplastic epithelium that thickens as the cancer progresses. They recognize three categories of polyps: non-neoplastic, benign neoplastic, and malignant. The follow-up period is shortened to 3 years. Concerning growth is increased to >4 mm per annum. Slow growth of benign polyps up to 2 mm per annum is common, and conversely, many small polyps disappear. Most malignant polyps are >20 mm. According to the 2020 guidelines: * extremely low risk polyps (pedunculated jzky-pl-bxe-wall, or thin stalk): * ?9 mm: no follow-up * 10-14 mm: follow-up ultrasound at 6, 12, and 24 months * ?15 mm: surgical consultation * low risk polyps (pedunculated with thick stalk, or sessile): * ?6 mm: no follow-up * 7-9 mm: follow-up ultrasound at 12 months * 10-14 mm: follow-up ultrasound at 6, 12, 24, and 36 months or surgical consultation * ?15 mm: surgical consultation * indeterminate risk polyps (focal wall thickening ?4 mm adjacent to polyp): * ?6 mm: follow-up ultrasound at 6, 12, 24, and 36 months or surgical consultation * ?7 mm: surgical consultation This document has been electronically signed by: Michelle Yost MD on 07/01/2024 10:32:02
--- OUTSIDE RECORDS SUMMARY | 2024-07-01 09:30 | XMS_ITS ---
Author Organization [facility] Address [address] [place] [address] Care Team Providers Care Integrated Circuit Ic Layout Designer Name Role Phone Thomas Whittington Primary Care Provider SHANDA Monaco [phone] Encounters Encounter Location Date Provider Diagnosis [facility] [address] [address] 01/02/2024 SHANDA GAMBLE PLAN OF TREATMENT No Information Progress Notes * Antonio MALDONADODOB:1970 (53 yo M)Acc No.[id number]:01/02/2024 Patient:??Antonio MALDONADO Provider:??SHANDA GAMBLE :1970?Age:53 Y?Sex:Ma le Date:01/02/2024 Address:[address] [place], [place] [address] Pcp:Thomas Whittington Subjective: * Chief Complaints: * ? * Medical History:?? Objective: Assessment: Plan: * Treatment: * Procedure Codes:??17237 NO S HOW OFFICE VISIT * Images: Billing Information: * Visit Code:?? * Procedure Codes:?? 67806 NO SHOW OFFICE VISIT. * Sign off status: Pending * Provider:??SHANDA GAMBLE Date:?? 024
--- OUTSIDE RECORDS SUMMARY | 2024-07-01 09:30 | XMS_ITS | Patient Health Record ---
Author Organization [facility] Address [address] [place] [address] Care Team Providers Care Register Clerk Name Role Phone Shaneantonio Thomas Primary Care Provider SHANDA Monaco Unavailable [phone] REASON FOR REFERRAL Diagnosis 1 Morbid obesity due t o excess calories (E66.01) Referring Provider First Name Thomas Referring Provider Last Name Nelsy Referred Organization [facility] Referred Provider CURT AMOS Referred Address [address] [place], [place],[address], Referred Provider Specialty Internal Med icine Referral Priority Routine PROBLEMS Problem Type ICD Code Onset Dates Problem Status W/U Status Risk SNOMED Code Notes Problem Morbid obesity due to excess calories (E66.01) Active confirmed Encounters Encounter Location Date Provider Diagnosis [facility] 119 299 [facility] [address] [place] [address] 01/02/2024 SHANDA GAMBLE PLAN OF TREATMENT No Information Insurance Providers Payer Name Payer Address Payer Phone Subscriber Number Group Number Insured Name Patient Relationship to Insured Coverage Start Date Coverage End Date [facility] and [facility] [address] [place] [address] [id number] Gus Antonio Self - patient is the insured
--- OUTSIDE RECORDS SUMMARY | 2024-07-01 09:30 | XMS_ITS | Clinical Summary ---
Author Organization [employer] [facility] Address [address] [facility] [address] 7t [place] [address] Care Team Providers Care Core Winding Operator Name Role Phone Unavailable Primary Care Provider [...] to complete this topic Insurance DENTAL - [facility]
== END 2024-07-01 09:03 | disposition home or self-care (01) ==
LOC: HO.HMGCX 09:02
PROVIDERS: PCP Nurse Practitioner Family; Visit Provider Nurse Practitioner Family
DX: R74.8 Abnormal levels of other serum enzymes (principal)
CPT/HCPCS: 76700

== ENCOUNTER → 2024-07-01 09:04 | Outpatient (BNV) | payer BC, SELFPAY | PROVIDERS: PCP Nurse Practitioner Family; Visit Provider Radiology Diagnostic Radiology | DX: R74.8 Abnormal levels of other serum enzymes (principal) | CPT/HCPCS: 76700 ==

== ENCOUNTER 2024-07-02 07:07 | Outpatient (AMB) | payer BC, SELFPAY ==
--- OUTSIDE RECORDS SUMMARY | 2024-07-02 07:10 | XMS_ITS | Patient Health Record ---
Author Organization [facility] Address [address] [place] [address] Care Team Providers Care Hand Buffer Name Role Phone Shaneantonio Thomas Primary Care Provider SHANDA Monaco Unavailable [phone] Reason For Referral Diagnosis 1 Morbid obesity due t o excess calories (E66.01) Referring Provider First Name Thomas Referring Provider Last Name Nelsy Referred Organization [employer] [facility] Referred Provider CURT AMOS Referred Address [address] [place], [place],[address], Referred Provider Specialty Internal Med icine Referral Priority Routine Problems Problem Type SNOMED Code ICD Code Onset Dates Problem Status W/U Status Risk Notes Problem Morbid obesity due to excess calories (E66.01) Active confirmed Encounters Encounter Location Date Provider Diagnosis [facility] 119 299 [facility] 119 [place] [address] 01/02/2024 SHANDA GAMBLE Plan Of Treatment No Information Insurance Providers Payer Name Payer Address Payer Phone Subscriber Number Group Number Insured Name Patient Relationship to Insured Coverage Start Date Coverage End Date [facility] and [facility] [address] [place] [address] [id number] 4 Gus Antonio Self - patient is the insured
--- OUTSIDE RECORDS SUMMARY | 2024-07-02 07:10 | XMS_ITS | Clinical Summary ---
Author Organization [employer] [facility] Address [address] [address] 7t [place] [address] Care Team Providers Care Cognos Administrator Name Role Phone Unavailable Primary Care Provider [...] to complete this topic Insurance DENTAL - [facility]
--- OUTSIDE RECORDS SUMMARY | 2024-07-02 07:10 | XMS_ITS ---
Author Organization [facility] Address [address] [place] [address] Care Team Providers Care Cosmetic Sales Name Role Phone Thomas Whittington Primary Care Provider SHANDA Monaco [phone] Encounters Encounter Location Date Provider Diagnosis [facility] [address] [address] 01/02/2024 SHANDA GAMBLE Plan Of Treatment No Information Progress Notes * Antonio MALDONADODOB:1970 (53 yo M)Acc No.[id number]:01/02/2024 Patient:?Antonio MALDONADO Provider:MIGUEL GAMBLE :1970???Age:53 Y???Sex:Male Hermelindo e:01/02/2024 Address:[address] [place], [place] [id number] Pcp:Thomas Whittington Subjective: * Chief Complaints: * ??? * Medical History:? Objective: * Vitals:? Assessment: Plan: * Treatment: * Procedure Codes:?90491 NO SH OW OFFICE VISIT * Billing Information: * Visit Code:? * Procedure Codes:? 59988 NO SHOW OFFICE VISIT. * Electronic signature of KIEL GAMBLE PA-C, [id number] on 07/02/2024 at 07:10 AM EDT Sign off status: Pending * Provider:MIGUEL GAMBLE Date:? 4 Generated for Printi ng/Faxing/eTransmitting on:?07/02/2024 07:10 AM EDT
--- NOTE | 2024-07-02 07:26 | MHC.PC.OV ---
Intake Visit Reasons: Discuss Wegovy Allergies amoxicillin Allergy (Unknown, Verified 06/25/24 16:12) hives Tobacco use date assessed: 02/28/24 Dental Screening Dental Screen Date: 02/28/24 HPI Discuss Wegovy HPI Details History of Present Illness The patient, a 53-year-old male, presents for follow-up concerning weight management and associated conditions. He has experienced a weight reduction of 14 pounds since the initiation of a GLP-1 agonist, with improvement in symptoms such as exertional dyspnea. The patient denies gastrointestinal side effects like constipation, and there is an overall enhancement in his well-being. Past evaluations revealed elevated liver enzymes, prompting the performance of an abdominal ultrasound, which detected a gallbladder polyp. Notably, the polyp size increased from 4 mm to 6 mm, necessitating continued monitoring through imaging. The patient denies any fever, chills, or changes in bowel habits, reporting a stable condition on current therapy. Review of Systems - Gastrointestinal: Denies constipation. No changes in bowel habits. - Constitutional: Denies fever, chills. - Respiratory: Reports less windedness. Plan The patient will continue on the GLP-1 agonist therapy, given its beneficial impact on weight loss and symptom improvement. We will monitor liver enzymes, repeating tests in two months, and keep observing the gallbladder polyp via ultrasound for any size changes. The absence of gastrointestinal or systemic symptoms supports the ongoing efficacy and safety of the current regimen. Discussion Notes During the visit, we discussed the positive progress related to the GLP-1 agonist therapy, leading to a 14-pound weight loss and reduced breathlessness. I emphasized the importance of continuing this medication due to its apparent benefits and recommended routine liver enzyme monitoring in two months. We reviewed the abdominal ultrasound findings showing an increase in gallbladder polyp size. I assured the patient that while the polyp requires watching, it does not currently warrant surgical intervention. The patient was counseled about the need for regular follow-up ultrasounds to monitor the polyp size. Patient Instructions - Continue taking the GLP-1 agonist medication as prescribed. - Schedule liver enzyme tests in two months. - Follow up for an abdominal ultrasound to monitor the gallbladder polyp. - Report any new symptoms such as abdominal pain, constipation, fever, or chills. PFSH Medical History PONV (postoperative nausea and vomiting) High triglycerides Dyslipidemia HTN (hypertension) Hepatitis C High body mass index (BMI) HIV (human immunodeficiency virus infection) Surgical History [place] teeth extracted History of ear surgery Family History Mother Lung cancer Colon cancer Mental health disorder Paternal Grandfather Colon cancer Other Substance use disorder Social History Housing: Apartment Are you a primary managed care analyst to a significant other at home: No Do you presently have visiting nurse or other home services: No Alcohol intake: current Alcohol intake frequency: holidays/special occasions only Patient Tobacco Use Status: Never used Tobacco e-Cigarette/Vaping Use: Never Used Second Hand Smoke Exposure: No Current occupational status: employed Cognitive needs: No Hearing needs: No Vision needs: No Questionnaire Thrive Questionnaire Date Thrive assessed: 02/25/24 I am a: Patient What is your living situation today?: I have a steady place to live Within the past 12 months, did the food you bought not last and you didn't have the money to get more?: Never true Within the past 12 months, did you worry whether your food would run out before you got money to buy more?: Never true Do you have trouble paying for medicines?: No Do you have trouble getting transportation to medical appointments?: No Do you have trouble paying your heating and electricity bill?: No Do you have trouble taking care of your child, family member or friend?: No Do you have trouble with day-to-day activities such as bathing, preparing meals, shopping, managing finances, etc.?: No Are you currently unemployed and looking for a job?: No Are you interested in more education?: No Please select the resources that you would like help with: None Currently or been in a relationship where the following occur: No concerns reported THRIVE Score: 0 BRISA-7 AMB Questionnaire BRISA-7 Date BRISA - 7 assessed: 02/28/24 Source: Developed by Drs. Gary Mckeon, Jesica Edmond, Aj Pitts and colleagues, with an educational anamaria from [employer]. Physical exam (Primary Care) Tobacco/Smoking Status: Tobacco use Status Tobacco use date assessed 02/28/24 02/28/24 13:43 Patient Tobacco Use Status Never used Tobacco 02/28/24 13:43 e-Cigarette/Vaping Use Never Used 02/28/24 13:43 Thrive Assessment: Date of Thrive Assessment Date Thrive assessed 02/25/24 06/22/24 20:45 Currently or been in a relationship where the following occur: No concerns reported Telehealth Telehealth Telehealth Platform: [employer] Location of provider rendering services: practice address Location of patient: address on file Patient Identification confirmed using: Name, : Yes Telehealth method: video Patient verbally consented to treatment: Yes Patient verbally consented to billing insurance company: Yes Patient informed of any privacy concerns related to visit: Yes Minutes spent on Phone/Video with Pt.: 12 Coding Level of Care Code Tele Est Pt Level 3 (31211) Diagnoses Gallbladder polyp K82.4 Elevated liver enzymes R74.8 Obesity E66.9 Assessment & Plan Assessment & Plan (1) Gallbladder polyp: Code(s): K82.4 - Cholesterolosis of gallbladder Category: Medical (2) Elevated liver enzymes: Code(s): R74.8 - Abnormal levels of other serum enzymes Category: Medical (3) Obesity: Code(s): E66.9 - Obesity, unspecified Category: Medical Plan . Orders: Orders Complete Blood Count Auto Diff Today R74.8 - Abnormal levels of other serum enzymes Comprehensive Met. Panel Today R74.8 - Abnormal levels of other serum enzymes
== END 2024-07-02 07:24 | disposition home or self-care (01) ==
LOC: HO.HMCC 07:08
PROVIDERS: PCP Nurse Practitioner Family; Visit Provider Nurse Practitioner Family
DX: K82.4 Cholesterolosis of gallbladder (principal); R74.8 Abnormal levels of other serum enzymes; E66.9 Obesity, unspecified

== ENCOUNTER → 2024-07-02 07:07 | Outpatient (BNVA) | payer BC, SELFPAY | PROVIDERS: PCP Nurse Practitioner Family; Visit Provider Nurse Practitioner Family ==

== ENCOUNTER 2024-10-01 08:23 | Outpatient (REF) | payer OTHER, SELFPAY ==
--- NOTE | ~2024-10-01 | US_ITS ---
CLINICAL HISTORY: B19.20 - Unspecified viral hepatitis C without hepatic coma --- Additional Notes or Special Instructions: resubmit US abdomen complete Comparison: US - US ABDOMEN COMPLETE - 07/01/24 09:10 EDT Findings: The visualized pancreas is normal. The visualized aorta and inferior vena cava are normal caliber. The liver is normal in size, right lobe length is 17.5 cm. Normal in echogenicity, mildly coarsened echotexture is unchanged, no focal lesion is seen. No intrahepatic bile duct dilatation. The common duct is 3 mm in diameter. Stable 5 mm gallbladder polyp, stable focal adenomyomatosis of the gallbladder fundus, no cholelithiasis or gallbladder wall thickening, negative sonographic To's sign. The main portal vein is patent with antegrade flow. The right kidney is normal, 10.7 cm in length. The left kidney is normal, 10.8 cm in length. The spleen is normal, 10.7 cm in length. No free fluid in the abdomen. Impression: 1. Stable 5 mm gallbladder polyp. 2. Stable mildly coarsened echotexture of liver parenchyma, most likely related to known hepatitis-C. No hepatic lesion is visualized. Society of Radiologists in Ultrasound guidelines (2021) The Society of Radiologists in Ultrasound (SRU) found no link between gallbladder carcinoma and polyps 17. Most gallbladder cancers arise from flat dysplastic epithelium that thickens as the cancer progresses. They recognize three categories of polyps: non-neoplastic, benign neoplastic, and malignant. The follow-up period is shortened to 3 years. Concerning growth is increased to >4 mm per annum. Slow growth of benign polyps up to 2 mm per annum is common, and conversely, many small polyps disappear. Most malignant polyps are >20 mm. According to the 2021 guidelines: * extremely low risk polyps (pedunculated nail-rl-ypc-wall, or thin stalk): * ?9 mm: no follow-up * 10-14 mm: follow-up ultrasound at 6, 12, and 24 months * ?15 mm: surgical consultation * low risk polyps (pedunculated with thick stalk, or sessile): * ?6 mm: no follow-up * 7-9 mm: follow-up ultrasound at 12 months * 10-14 mm: follow-up ultrasound at 6, 12, 24, and 36 months or surgical consultation * ?15 mm: surgical consultation * indeterminate risk polyps (focal wall thickening ?4 mm adjacent to polyp): * ?6 mm: follow-up ultrasound at 6, 12, 24, and 36 months or surgical consultation * ?7 mm: surgical consultation This document has been electronically signed by: Elizabeth Brock MD on 10/01/2024 12:55:09
--- OUTSIDE RECORDS SUMMARY | 2024-10-01 08:33 | XMS_ITS | Patient Health Record ---
Author Organization [facility] Address [address] [place] [address] Care Team Providers Care Church Worker Name Role Phone Thomas Whittington Primary Care Provider SHANDA Monaco Unavailable [phone] Reason For Referral Diagnosis 1 Morbid obesity due t o excess calories (E66.01) Referring Provider First Name Thomas Referring Provider Last Name Nelsy Referred Organization [facility] Referred Provider CURT AMOS Referred Address [address], [place],[address], Referred Provider Specialty Internal Med icine Referral Priority Routine Problems Problem Type SNOMED Code ICD Code Onset Dates Problem Status W/U Status Risk Notes Problem Morbid obesity due to excess calories (E66.01) Active confirmed Encounters Encounter Location Date Provider Diagnosis [facility] [address] [address] 01/02/2024 SHANDA GAMBLE Plan Of Treatment No Information Insurance Providers Payer Name Payer Address Payer Phone Subscriber Number Group Number Insured Name Patient Relationship to Insured Coverage Start Date Coverage End Date [facility] and [facility] [address] [place] [address] [id number] Gus Antonio Self - patient is the insured
--- OUTSIDE RECORDS SUMMARY | 2024-10-01 08:33 | XMS_ITS | Clinical Summary ---
Author Organization [employer] [facility] Address [address] [facility] 7t [place] [address] Care Team Providers Care Concrete Floor Installer Name Role Phone Unavailable Primary Care Provider [...] Panel 1970 SDOH Screening 1970 Sigmoidoscopy 1970 Disability Screening 1970 Alcohol/Substance Use Screening 1980 Hepatitis C Screening 1986 Hepatitis B Vaccines (3 of 3 - 19+ 3-dose series) 07/03/2016 02/01/2016, 01/04/2016 Zoster Vaccines (1 of 2) 2018 Pneumococcal Vaccine: 50+ Years (2 of 2 - PCV) 03/10/2022 03/10/2021, 01/04/2016 COVID-19 Vaccine ( - 2023- season) 2023 12/11/2022, 01/07/2022, 12/13/2020, Additional history exists Tobacco Screening 08/28/2024 08/29/2023 Influenza Vaccine (#1) 2024 , 01/07/2022, 12/13/2020, Additional history exists DTaP/Tdap/Td Vaccines (2 - Td or Tdap) [...] patient's age to complete this topic Meningococcal B Vaccine Aged Out No l onger eligible based on patient's age to complete this topic Meningococcal Vaccine Aged Out No jacqueline blanquita eligible based on patient's age to complete this topic RSV under 20 months Aged Out No longe r eligible based on patient's age to complete this topic Rotavirus Vaccines Aged Out No longer eligible based on patient's age to complete this topic Insurance DENTAL - [employer] DENTAL
[2024-10-01 10:37] LABS: MANUAL DIFF FLAG NO
[2024-10-01 10:44] LABS: Hematocrit 43.6 % (42.0-52.0); Hemoglobin 15.3 g/dl (14.0-18.0); Imm Gran Abs Auto 0.02 X10*3/uL (0.00-0.03); Imm Gran Pct Auto 0.3 % (0.0-0.4); Lymphocytes Absolute Auto 2.1 X10*3/uL (1.2-4.9); Mean Corpuscular HGB Conc 35.1 g/dl (31.0-36.0); Mean Corpuscular Hemoglobin 31.5 pg (27.0-33.0); Mean Corpuscular Volume 89.9 fL (80.0-98.0); NRBC Abs Auto 0.000 X10*3/uL (0.0-0.012); NRBC Pct Auto 0.0 /100WBC (0.0-0.2); Platelet Count 212 X10*3/uL (160-400); Red Blood Count 4.85 X10*6/uL (4.60-5.80); White Blood Count 6.6 X10*3/uL (4.8-10.8)
[2024-10-01 11:20] LABS: Alanine Aminotransferase 58 U/L (0-40); Albumin Level 4.6 g/dL (3.5-5.0); Alkaline Phosphatase 60 U/L (39-117); Anion Gap 10 (12-20); Aspartate Amino Transferase 37 U/L (5-37); Blood Urea Nitrogen 15 mg/dL (9-16); Calcium 9.5 mg/dL (8.4-10.2); Carbon Dioxide 25 mmol/L (22-29); Chloride 109 mmol/L (96-108); Estimated Glomerular Filt Rate > 60; Potassium 3.9 mmol/L (3.3-5.1); Sodium 140 mmol/L (135-145); Total Protein 7.9 g/dL (6.5-8.0)
== END 2024-10-01 08:24 | disposition home or self-care (01) ==
LOC: HO.HMGCX 08:23
PROVIDERS: PCP Nurse Practitioner Family; Visit Provider Nurse Practitioner Family
DX: B19.20 Unspecified viral hepatitis C without hepatic coma (principal); K82.4 Cholesterolosis of gallbladder; R74.8 Abnormal levels of other serum enzymes
CPT/HCPCS: 36415; 76700; 80053; 85025; 87902

== ENCOUNTER → 2024-10-01 08:32 | Outpatient (BNV) | payer OTHER, SELFPAY | PROVIDERS: PCP Nurse Practitioner Family; Visit Provider Radiology Diagnostic Radiology | DX: B19.20 Unspecified viral hepatitis C without hepatic coma (principal) | CPT/HCPCS: 76700 ==

== ENCOUNTER 2024-11-20 06:37 | Outpatient (AMB) | payer OTHER, SELFPAY ==
--- OUTSIDE RECORDS SUMMARY | 2024-01-02 09:00 | XMS_ITS ---
Author Organization [facility] [address] Address [address] [place] [address] Care Team Providers Care Manager Medicaid Name Role Phone Thomas Whittington Primary Care Provider SHANDA Monaco [phone] Encounters Encounter Location Date Provider Diagnosis [facility] [address] [address] 01/02/2024 SHANDA GAMBLE Plan Of Treatment No Information Progress Notes * Antonio MALDONADODOB:1970 (53 yo M)Acc No.[id number]:01/02/2024 Patient: Antonio VIDES Provider: Alexis GAMBLE :1970 A ge:53 Y S ex:Male Date:01/02/2024 Address:[address] [place], [place] [phone] Pcp:Thomas Whittington Subjective: * Chief Complaints: * * Medical History: Objective: * Vitals: Assessment: Plan: * Treatment: * Procedure Codes: 9 9199 NO SHOW OFFICE VISIT * Images: Billing Information: * Visit Code: * Procedure Codes: 02401 NO SHOW OFFICE VISIT. * Electronic signature of KIEL GAMBLE PA-C, [id number] on 11/20/2024 at 06:41 AM EDT Sign off status: Pending * Provider: Alexis GAMBLE Date: 03/03/2023 Generated for Umair chatman/Efra/eTransmitting on: 06:41 AM EDT
--- OUTSIDE RECORDS SUMMARY | 2024-11-20 06:41 | XMS_ITS | Clinical Summary ---
Author Organization [employer] [facility] Address [address] [place] [address] Care Team Providers Care Take Up Operator Name Role Phone Unavailable Primary Care [...] of 2 - PCV) 03/10/2022 03/10/2021, 01/04/2016 Tobacco Screening 08/28/2024 08/29/2023 COVID-19 Vaccine ( season) 2024 12/11/2022, 01/07/2022, 12/13/2020, Additional history exists Influenza Vaccine (#1) 2024 , 01/07/2022, 12/13/2020, [...]
--- OUTSIDE RECORDS SUMMARY | 2024-11-20 06:41 | XMS_ITS | Patient Health Record ---
Author Organization [facility] Address [address] [place] [address] Care Team Providers Care Histology Aide Name Role Phone Thomas Whittington Primary Care Provider SHANDA Monaco Unavailable [phone] Reason For Referral Diagnosis 1 Morbid obesity due t o excess calories (E66.01) Referring Provider First Name Thomas Referring Provider Last Name Nelsy Referred Organization [facility] Referred Provider CURT AMOS Referred Address [address] [facility],[address], Referred Provider Specialty Internal Med icine Referral Priority Routine Problems Problem Type SNOMED Code ICD Code Onset Dates Problem Status W/U Status Risk Notes Problem Morbid obesity (766088909) Morbid obesity due to excess calories (E66.01) Active confirmed Encounters Encounter Location Date Provider Diagnosis [facility] [address] [facility] [address] [place] [address] 01/02/2024 SHANDA GAMBLE Plan Of Treatment No Information Insurance Providers Payer Name Payer Address Payer Phone Subscriber Number Group Number Insured Name Patient Relationship to Insured Coverage Start Date Coverage End Date [facility] and [facility] [address] [place] [address] [id number] Gus Antonio Self - patient is the insured
--- NOTE | 2024-11-20 07:38 | MHC.PC.OV ---
Intake Visit Reasons: Discuss weight loss med,include weight/BMI in note Allergies amoxicillin Allergy (Unknown, Verified 11/20/24 07:40) hives Medication List - Last Reconciled 11/20/24 by FRANCOISE Saleh- ascorbate calcium (vitamin C) 500 mg PO DAILY atorvastatin 10 mg PO DAILY cholecalciferol (vitamin D3) 250 mcg PO DAILY dolutegravir (Tivicay) 50 mg PO DAILY 30 days emtricitabine-tenofovir alafen 200-25 mg (Descovy) 1 tab PO DAILY 30 days lisinopril 5 mg PO DAILY omega-3 acid ethyl esters 1 cap PO BID sertraline 50 mg PO DAILY sildenafil (Viagra) 50 mg PO DAILY PRN tirzepatide (weight loss) (Zepbound) 2.5 mg (0.5 mL) subcut QWEEK Tobacco use date assessed: 02/28/24 Dental Screening Dental Screen Date: 02/28/24 HPI Discuss weight loss med,include weight/BMI in note HPI Details History of Present Illness The patient is a 53-year-old male presenting with obesity and elevated fasting blood glucose. Pt further has a Hx of HTN and dyslipidemia with high trigs. He reports that semaglutide was effective in aiding weight loss, but he had to discontinue it over three weeks ago due to insurance denial. He has already noted a significant weight increase since being off this class of medication. The patient has a significant history of obesity and elevated fasting blood glucose, which are being managed with medication. I do not think phentermine is a good alternative to a GLP-1, due to heart related risks/arrhythmias. Review of Systems - General: Denies fever or chills. - Endocrine: Denies history of pancreatitis or thyroid carcinoma. Plan 1. Obesity The patient was previously on semaglutide, which was effective for weight loss, but had to discontinue due to insurance issues. Zepbound, which is covered by insurance, will be initiated at a dose of 2.5 mg once weekly for a month to assist in weight management. 2. Elevated Fasting Blood Glucose The patient's elevated fasting blood glucose is being managed with medication and lifestyle changes. The initiation of Zepbound is expected to aid in creating a healthier metabolic environment. Discussion Notes I discussed with the patient the plan to initiate Zepbound due to its coverage by insurance and its potential benefits in managing obesity and elevated fasting blood glucose. We reviewed the absence of any history of pancreatitis or thyroid carcinoma, which are important considerations for this treatment. Patient Instructions - Start Zepbound at 2.5 mg once weekly for one month. - Monitor blood glucose levels regularly. - Report any unusual symptoms or side effects immediately. [facility] Medical History (Updated 11/20/24 @ 07:39 by AMY Saleh) PONV (postoperative nausea and vomiting) High triglycerides Dyslipidemia HTN (hypertension) Hepatitis C High body mass index (BMI) HIV (human immunodeficiency virus infection) Surgical History [place] teeth extracted History of ear surgery Family History Mother Lung cancer Colon cancer Mental health disorder Paternal Grandfather Colon cancer Other Substance use disorder Social History Housing: Apartment Are you a primary day care attendant to a significant other at home: No Do you presently have visiting nurse or other home services: No Alcohol intake: current Alcohol intake frequency: holidays/special occasions only Patient Tobacco Use Status: Never used Tobacco e-Cigarette/Vaping Use: Never Used Second Hand Smoke Exposure: No Current occupational status: employed Cognitive needs: No Hearing needs: No Vision needs: No Questionnaire Thrive Questionnaire Date Thrive assessed: 02/25/24 I am a: Patient What is your living situation today?: I have a steady place to live Within the past 12 months, did the food you bought not last and you didn't have the money to get more?: Never true Within the past 12 months, did you worry whether your food would run out before you got money to buy more?: Never true Do you have trouble paying for medicines?: No Do you have trouble getting transportation to medical appointments?: No Do you have trouble paying your heating and electricity bill?: No Do you have trouble taking care of your child, family member or friend?: No Do you have trouble with day-to-day activities such as bathing, preparing meals, shopping, managing finances, etc.?: No Are you currently unemployed and looking for a job?: No Are you interested in more education?: No Please select the resources that you would like help with: None Currently or been in a relationship where the following occur: No concerns reported THRIVE Score: 0 BRISA-7 AMB Questionnaire BRISA-7 Date BRISA - 7 assessed: 02/28/24 Source: Developed by Drs. Gary Mckeon, Jesica Edmond, Aj Pitts and colleagues, with an educational anamaria from [employer]. Physical exam (Primary Care) Tobacco/Smoking Status: Tobacco use Status Tobacco use date assessed 02/28/24 07/02/24 07:28 Patient Tobacco Use Status Never used Tobacco 07/02/24 07:28 e-Cigarette/Vaping Use Never Used 07/02/24 07:28 Thrive Assessment: Date of Thrive Assessment Date Thrive assessed 02/25/24 07/02/24 07:28 Currently or been in a relationship where the following occur: No concerns reported Telehealth Telehealth Telehealth Platform: [facility] Location of provider rendering services: practice address Location of patient: address on file Patient Identification confirmed using: Name, : Yes Telehealth method: video Patient verbally consented to treatment: Yes Patient verbally consented to billing insurance company: Yes Patient informed of any privacy concerns related to visit: Yes Minutes spent on Phone/Video with Pt.: 15 Coding Level of Care Code Tele Est Pt Level 3 (29548) Diagnoses Elevated fasting blood sugar R73.01 High body mass index (BMI) High triglycerides E78.1 Dyslipidemia E78.5 HTN (hypertension) I10 Assessment & Plan Assessment & Plan (1) Elevated fasting blood sugar: Code(s): R73.01 - Impaired fasting glucose Category: Medical (2) High body mass index (BMI): Comment: High BMI and hypertriglyceridemia may be risk for metabolic syndrome and cardiac concerns Category: Medical (3) High triglycerides: Code(s): E78.1 - Pure hyperglyceridemia Category: Medical (4) Dyslipidemia: Code(s): E78.5 - Hyperlipidemia, unspecified Category: Medical (5) HTN (hypertension): Code(s): I10 - Essential (primary) hypertension Category: Medical Plan . Medications: New tirzepatide (weight loss) (Zepbound) for 4 weeks 2.5 mg (0.5 mL) subcut QWEEK 2 mL 0RF Discontinued semaglutide (weight loss) administer weeks 1 through 4 of therapy Discontinued Reason: Doctor's Order 2.4 mg (0.75 mL) subcut QWEEK 3 mL 3RF
== END 2024-11-20 17:09 | disposition home or self-care (01) ==
LOC: HO.HMCC 06:38
PROVIDERS: PCP Nurse Practitioner Family; Visit Provider Nurse Practitioner Family
DX: R73.01 Impaired fasting glucose (principal); E78.1 Pure hyperglyceridemia; E78.5 Hyperlipidemia, unspecified; I10 Essential (primary) hypertension

== ENCOUNTER 2024-12-10 13:58 | Outpatient (AMB) | payer OTHER, SELFPAY ==
--- OUTSIDE RECORDS SUMMARY | 2024-01-02 09:00 | XMS_ITS ---
Author Organization [facility] [address] Address [address] [place] [address] Care Team Providers Care Assistant Foreman Name Role Phone Thomas Whittington Primary Care Provider SHANDA Monaco [phone] Encounters Encounter Location Date Provider Diagnosis [facility] [address] [address] 01/02/2024 SHANDA GAMBLE Plan Of Treatment No Information Progress Notes * Antonio MALDONADODOB:1970 (53 yo M)Acc No.[id number]:01/02/2024 Patient: Antonio VIDES Provider: Alexis GAMBLE :1970 A ge:53 Y S ex:Male Date:01/02/2024 Address:[address] [place], [place] [id number] Pcp:Thomas Whittington Subjective: * Chief Complaints: * * Medical History: Objective: * Vitals: Assessment: Plan: * Treatment: * Procedure Codes: 9 9199 NO SHOW OFFICE VISIT * Images: Billing Information: * Visit Code: * Procedure Codes: 65836 NO SHOW OFFICE VISIT. * Electronic signature of KIEL GAMBLE PA-C, [id number] on 12/10/2024 at 08:03 PM EDT Sign off status: Pending * Provider: Alexis GAMBLE Date: 03/03/2023 Generated for Umair chatman/Efra/eTransmitting on: 08:03 PM EDT
[2024-12-10 14:01] VITALS: BP 148/86; PULSE 69; RESP 16; O2SAT 95; BMI 37.2
--- NOTE | 2024-12-10 14:01 | A.OFFPC_ITS ---
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 History of Present Illness The patient is a 53-year-old male presenting with severe right shoulder pain. The pain started about a month ago without a specific triggering event and has progressively worsened, severely restricting his ability to lift his arm above shoulder height. He experiences significant discomfort during physical activities and routine tasks. During the examination, the patient could not perform the Afsaneh's test due to pain, and a positive Neer's test was observed, while the Tadeo' test was negative. Extensive crepitus was noted, and a positive radial pulse was detected. The clinician suspects a possible labral tear based on the clinical presentation and examination findings. The patient denies any specific traumatic event causing the symptoms. Social History Health Maintenance Review of Systems - Musculoskeletal: Reports severe right shoulder pain, difficulty raising arm above shoulder level Physical Exam General: Cooperative, healthy appearing, comfortable, no acute distress and well developed Orientation: Patient oriented x3 Limitations: Difficulty raising right shoulder above shoulder level Head: Normal to inspection Ears: Hearing grossly normal bilaterally Nose: Normal external nose present Face and sinus: Normal facial exam Eyes: Appearance normal, both eyes and all related structures Neck: Normal visual inspection and Yes full ROM Respiratory: Normal respiratory effort and able to speak in complete sentences. Clear to auscultation bilaterally Cardiovascular: Regular rate and rhythm. Normal S1 and S2 GI: Normal to inspection. Soft to palpation and nontender Skin: No rashes or lesions noted Neuro: Patient oriented x3 Extremities: Extensive crepitus noted during exam, + neers, neg tadeo, unable to perform afsaneh's due to pain Results Plan 1. Right Shoulder Pain The patient will be referred to physical therapy to address the severe right shoulder pain and improve range of motion. An MRI of the shoulder is planned to assess for potential structural injuries, including a possible labral tear. Discussion Notes I discussed with the patient the likelihood of a structural injury in the shoulder, possibly a labral tear, and the need for an MRI to confirm the diagnosis. We also talked about starting physical therapy to help alleviate the pain and improve shoulder function. Patient Instructions - Attend scheduled physical therapy sess ions to improve shoulder mobility and reduce pain. - Follow up for MRI results to determine the next steps in management. [facility] Medical History PONV (postoperative nausea and vomiting) High triglycerides Dyslipidemia HTN (hypertension) Hepatitis C High body mass index (BMI) HIV (human immunodeficiency virus infection) Surgical History [place] teeth extracted History of ear surgery Family History Mother Lung cancer Colon cancer Mental health disorder Paternal Grandfather Colon cancer Other Substance use disorder Social History Housing: Apartment Are you a primary resident caregiver to a significant other at home: No Do you presently have visiting nurse or other home services: No Alcohol intake: current Alcohol intake frequency: holidays/special occasions o nly Patient Tobacco Use Status: Never used Tobacco e-Cigarette/Vaping Use: Never Used Second Hand Smoke Exposure: No Current occupational status: employed Cognitive needs: No Hearing needs: No Vision needs: No Questionnaire PHQ-9 Over the last 2 weeks, how often have you been bothered by any of the following problems? 1. Little interest or pleasure in doing things: not at all 2. Feeling down, depressed, or hopeless: not at all 3. Trouble falling or staying asleep, or sleeping too much: not at all 4. Feeling tired or having little energy: not at all 5. Poor appetite or overeating: not at all 6. Feeling bad about yourself - or that you are a failure or have let yourself or your family down: not at all 7. Trouble concentrating on things, such as reading the newspaper or watching television: not at all 8. Moving or speaking so slowly that other people could have noticed. Or the op posite - being so fidgety or restless that you have been moving around a lot more than usual: not at all 9. Thoughts that you would be better off or of hurting yourself in some way: not at all Total score: 0 Depression Screening Interpretation: Negative Depression Screening Done: Yes 92310 - PHQ-9 Billing: Yes Source: Developed by Drs. Gary Mckeon, Jesica Edmond, Aj Pitts and colleagues, with an educational anamaria from [employer]. Thrive Questionnaire Date Thrive assessed: 02/25/24 I am a: Patient What is your living situation today?: I have a steady place to live Within the past 12 months, did the food you bought not last and you didn't have the money to get more?: Never true Within the past 12 months, did you worry whether your food would run out before you got money to buy more?: Never true Do you have trouble paying for medicines?: No Do you have trouble getting transportation to medical appointments?: No Do you have trouble paying your heating and electricity bill?: No Do you have trouble taking care of your child, family member or friend?: No Do you have trouble with day-to-day activities such as bathing, preparing meals, shopping, managing finances, etc.?: No Are you currently unemployed and looking for a job?: No Are you interested in more education?: No Please select the resources that you would like help with: None Currently or been in a relationship where the following occur: No concerns reported THRIVE Score: 0 BRISA-7 AMB Questionnaire BRISA-7 Date BRISA - 7 assessed: 02/28/24 Feeling nervous, anxious, or on edge: 0 = Not at all Not being able to stop or control worryin = Not at all Worrying too much about different things: 0 = Not at all Trouble relaxin = Not at all Being so restless that it is hard to sit still: 0 = Not at all Becoming easily annoyed or irritable: 0 = Not at all Feeling afraid as if something awful might happen: 0 = Not at all Total BRISA-7 score (0-4 normal; 5-9 mild; 10-14 moderate; 15-21 severe): 0 Source: Developed by Drs. Gary Mckeon, Jesica Edmond, Aj Pitts and colleagues, with an educational anamaria from [employer]. BRISA-7 Assessment Billing BRISA-7 Assessment Tool: BRISA-7 Assessment 35318 Physical exam (Primary Care) Vital Signs: Last Vital Signs Pulse 69 12/10/24 14:01 Resp 16 12/10/24 14:01 BP 148/86 H 12/10/24 14:01 Pulse Ox 95 12/10/24 14:01 Oxygen Delivery Method Room Air 12/10/24 14:01 BMI result Body Mass Index 37.2 Tobacco/Smoking Status: Tobacco use Status Tobacco use date assessed 12/10/24 12/10/24 14:04 Patient Tobacco Use Status Never used Tobacco 12/10/24 14:04 e-Cigarette/Vaping Use Never Used 12/10/24 14:04 PHQ-9: PHQ-9 Score PHQ-9: Total score 0 12/10/24 14:31 Depression Screening Interpretation: Negative Thrive Assessment: Date of Thrive Assessment Date Thrive assessed 02/25/24 12/10/24 14:04 Currently or been in a relationship where the following occur: No concerns reported Coding Level of Care Code Est Pt Level 3 (18489) Diagnoses Right shoulder pain M25.511 Additional Codes BRISA-7 Assessment Billing - BRISA-7 Assessment Tool: BRISA-7 Assessment 57304 ([id number]) PHQ-9 - 60512 - PHQ-9 Billing: Yes ([id number]) Assessment & Plan Assessment & Plan (1) Right shoulder pain: Code(s): M25.511 - Pain in right shoulder Category: Medical Plan . Orders: Orders MR shoulder RT wo con Today M25.511 - Pain in right shoulder PT Evaluation and Treatment Today M25.511 - Pain in right shoulder Medications: New meloxicam 15 mg PO DAILY 30 tabs 1RF 30 days
--- OUTSIDE RECORDS SUMMARY | 2024-12-10 20:03 | XMS_ITS | Patient Health Record ---
Author Organization [facility] Address [address] [place] [address] Care Team Providers Care Joint Creaser Name Role Phone MacieThomas smith Primary Care Provider SHANDA Monaco Unavailable [phone] Reason For Referral No Information Problems Problem Type SNOMED Code ICD Code Onset Dates Problem Status W/U Status Risk Notes Problem Morbid obesity (890855101) Morbid obesity due to excess calories (E66.01) Active confirmed Encounters Encounter Location Date Provider Diagnosis [facility] [address] [facility] [address] [place] [address] 01/02/2024 SHANDA GAMBLE Plan Of Treatment No Information Insurance Providers Payer Name Payer Address Payer Phone Subscriber Number Group Number Insured Name Patient Relationship to Insured Coverage Start Date Coverage End Date [facility] [address] [place] [address] [id number] Gus Antonio Self - patient is the insured
--- OUTSIDE RECORDS SUMMARY | 2024-12-10 20:03 | XMS_ITS | Clinical Summary ---
Author Organization [employer] [facility] Address [address] [place] [address] Care Team Providers Care Fruit Or Nut Farmworker Name Role Phone Unavailable Primary Care Provider [...]
== END 2024-12-10 15:17 | disposition home or self-care (01) ==
LOC: HO.HMCC 13:59
PROVIDERS: PCP Nurse Practitioner Family; Visit Provider Nurse Practitioner Family
DX: M25.511 Pain in right shoulder (principal)

== ENCOUNTER → 2024-12-10 13:58 | Outpatient (BNVA) | payer OTHER, SELFPAY | PROVIDERS: PCP Nurse Practitioner Family; Visit Provider Nurse Practitioner Family | DX: M25.511 Pain in right shoulder (principal) | CPT/HCPCS: 96127; 99212 ==

== ENCOUNTER 2024-12-20 10:47 | Outpatient (REF) | payer OTHER, SELFPAY ==
--- OUTSIDE RECORDS SUMMARY | 2024-01-02 09:00 | XMS_ITS ---
Author Organization [facility] [address] Address [address] [place] [address] Care Team Providers Care Security Controls Assessor Name Role Phone Thomas Whittington Primary Care Provider SHANDA Monaco [phone] Encounters Encounter Location Date Provider Diagnosis [facility] [address] [address] 01/02/2024 SHANDA GAMBLE Plan Of Treatment No Information Progress Notes * Antonio MALDONADODOB:1970 (53 yo M)Acc No.[id number]:01/02/2024 Patient: Antonio VIDES Provider: Alexis GAMBLE :1970 A ge:53 Y S ex:Male Date:01/02/2024 Address:[address] [place], [place] [phone] Pcp:Thomas Whittington Subjective: * Chief Complaints: * * Medical History: Objective: * Vitals: Assessment: Plan: * Treatment: * Procedure Codes: 9 9199 NO SHOW OFFICE VISIT * Images: Billing Information: * Visit Code: * Procedure Codes: 41659 NO SHOW OFFICE VISIT. * Electronic signature of KIEL GAMBLE PA-C, [id number] on 12/20/2024 at 10:50 AM EDT Sign off status: Pending * Provider: Alexis GAMBLE Date: 03/03/2023 Generated for Umair chatman/Efra/eTransmitting on: 02/20/2024 10:50 AM EDT
--- OUTSIDE RECORDS SUMMARY | 2024-12-20 10:50 | XMS_ITS | Clinical Summary ---
Author Organization [facility] Address [address] [place] [address] Care Team Providers Care Family Helper Name Role Phone Unavailable Primary Care Provider [...]
--- OUTSIDE RECORDS SUMMARY | 2024-12-20 10:50 | XMS_ITS | Patient Health Record ---
Author Organization [facility] Address [address] [place] [address] Care Team Providers Care Psychology Lecturer Name Role Phone MacieThomas smith Primary Care Provider SHANDA Monaco Unavailable [phone] Reason For Referral No Information Problems Problem Type SNOMED Code ICD Code Onset Dates Problem Status W/U Status Risk Notes Problem Morbid obesity (016276251) Morbid obesity due to excess calories (E66.01) Active confirmed Encounters Encounter Location Date Provider Diagnosis [facility] [address] [facility] [address] [place] [address] 01/02/2024 SHANDA GAMBLE Plan Of Treatment No Information Insurance Providers Payer Name Payer Address Payer Phone Subscriber Number Group Number Insured Name Patient Relationship to Insured Coverage Start Date Coverage End Date [facility] [address] [place] [address] [phone] [id number] Gus Antonio Self - patient is the insured
[2024-12-24 01:18] LABS: HIV RNA PCR Qn Copies 166 copies/mL (NOT DETECTED); HIV RNA PCR Qn Log Copies 2.22 (NOT DETECTED)
[2024-12-25 15:44] LABS: Absolute CD3 Count 2057 cells/uL (840-3060); Absolute CD8 Count 1023 cells/uL (180-1170); Percent CD3 Cells 81 % (57-85); Percent CD8 Cells 40 % (12-42)
== END 2024-12-20 10:48 | disposition home or self-care (01) ==
LOC: HO.LAB 10:47
PROVIDERS: Visit Provider Internal Medicine
DX: B20 Human immunodeficiency virus [HIV] disease (principal)
CPT/HCPCS: 36415; 86359; 86360; 87536

== ENCOUNTER 2024-12-26 09:20 | Outpatient (AMB) | payer OTHER, SELFPAY ==
--- OUTSIDE RECORDS SUMMARY | 2024-01-02 08:00 | XMS_ITS ---
Author Organization [facility] [address] Address [address] [place] [address] Care Team Providers Care Hydrodynamics Professor Name Role Phone Thomas Whittington Primary Care Provider SHANDA Monaco [phone] Encounters Encounter Location Date Provider Diagnosis [facility] [address] [address] 01/02/2024 SHANDA GAMBLE Plan Of Treatment No Information Progress Notes * Antonio MALDONADODOB:1970 (53 yo M)Acc No.[id number]:01/02/2024 Patient: Antonio VIDES Provider: Alexis GAMBLE :1970 A ge:53 Y S ex:Male Date:01/02/2024 Address:[address] [place], [place] [id number] Pcp:Thomas Whittington Subjective: * Chief Complaints: * * Medical History: Objective: * Vitals: Assessment: Plan: * Treatment: * Procedure Codes: 9 9199 NO SHOW OFFICE VISIT * Images: Billing Information: * Visit Code: * Procedure Codes: 93092 NO SHOW OFFICE VISIT. * Electronic signature of KIEL GAMBLE PA-C, [id number] on 12/26/2024 at 10:31 AM EST Sign off status: Pending * Provider: Alexis GAMBLE Date: 03/03/2023 Generated for Umair chatman/Efra/eTransmitting on: 02/26/2024 10:31 AM EST
[2024-12-26 09:44] VITALS: PULSE 83; O2SAT 98; BMI 38.8
--- NOTE | 2024-12-26 09:44 | A.OFFVIS_ITS ---
Vital Signs 12/26/24 09:44 Height 5 ft 4 in Weight 226 lb BMI 38.8 Pulse 83 Pulse Source Pulse Oximeter Pulse Oximetry (%) 98 Intake Visit Reasons: HIV Allergies amoxicillin Allergy (Unknown, Verified 12/26/24 09:45) hives HPI Comments Details: History of Present Illness The patient is a 53-year-old male presenting for evaluation in the context of HIV management and follow-up. He has faced recent unemployment and is looking for new employment opportunities. He reported an insurance lapse that has affected his medication access, leading to concerns about weight gain due to being unable to continue Wegovy. The patient reports feeling well generally with no particular health complaints. Of notable concern, there is a small increasing trend in his HIV viral load despite adherence to his treatment with Biktarvy, albeit at varying times for convenience. Previous evaluations recorded a lower viral load than currently noted. The patient?s current plan involves re-evaluation of his viral load and cell count in six months, with his medication plan secured for the same period. No depressive symptoms have been noted with a self-reported depression score of 1, and no current need for STI testing as per the patient's denial. Review of Systems - General: Denies specific complaints. - HEENT: Denies symptoms. - Respiratory: Denies symptoms. - Cardiovascular: Denies symptoms. - Gastrointestinal: Denies symptoms. - Musculoskeletal: Denies symptoms. - Neurological: Denies symptoms. - Psychiatric: Denies depression beyond a score of 1. Physical Exam - Vitals- Vital signs stable. - HEENT- Oropharynx clear, no adenopathy. - Respiratory- Lungs clear. - Cardiovascular- Heart regular rhythm. - Abdomen- Soft, nontender. - Extremities- Nontender. Results - Labs: Small increasing HIV viral load. Plan Patient was informed and verbally consented to the use of an ambient scribe for clinic note documentation during this visit. 1. Unemployment, unspecified Z56.0 Currently addressing the loss of employment which the patient is actively resolving, as a new opportunity at [employer] is sought. 2. Insurance Lapse Discussed the effects of insurance lapsing on medication affordability; future plans will involve addressing these concerns to improve medication adherence and overall management of conditions. 3. Abnormal weight gain R63.5 Weight gain issue linked to loss of Wegovy due to insurance lapse. The plan includes exploring options to reinstitute this medication pending insurance resolution. 4. Loss Of Access To Medications Wegovy The obstacle is related to medication cost coverage; once addressed, Wegovy may be resumed for weight management. 5. Human immunodeficiency virus [HIV] disease B20 HCC 1 Continue Biktarvy regimen while reassessing viral load and CD4 count in six months, recognizing current minor increases despite medication adherence. 6. Dyslipidemia Continue managing lipid profiles with the coordinated care of primary healthcare to prevent complications. Discussion Notes During our discussion, I reviewed the patient's current HIV management status, particularly the concerns about the small increase in the viral load. We considered continuing his current antiretroviral therapy, Biktarvy, while planning to reassess his viral load and cell count in six months. This timeline allows for monitoring changes or stabilization. We addressed the impact of his lapsed insurance on medication accessibility, particularly Wegovy, and options were considered, although not resolved during this visit. We discussed no current need for STI testing and agreed upon revisiting any symptoms related to other systems if they arise. The patient understood and consented to the discussed plan, acknowledging the importance of consistent medication adherence and follow-up care. Medical Decision Making The main decision-making focus centers on the management of the patient's HIV condition. The increase in viral load, despite ongoing treatment, indicates a n eed for careful monitoring and continued antiretroviral therapy. The choice of continuing Biktarvy aligns with maintaining a stable regimen. Considerations for re-evaluation timelines are based on the stability and minor changes observed, opting for a follow-up in six months. The insurance lapse brings complexity to medication availability, therefore prioritizing consistency in accessing current treatment was emphasized. Also, the lack of depressive symptoms reduces concerns around mental health treatment, though ongoing vigilance is necessary. Patient Instructions - Keep taking Biktarvy as prescribed. - We will check the HIV viral load and CD4 count again in six months. - Follow up with your primary care provider about managing lipidemia. - Work on resolving the insurance issue to address medication access. - Maintain healthy dietary and lifestyle habits to manage weight gain. - If any new symptoms arise or you feel unwell, seek medical attention promptly. [facility] Medical History PONV (postoperative nausea and vomiting) High triglycerides Dyslipidemia HTN (hypertension) Hepatitis C High body mass index (BMI) HIV (human immunodeficiency virus infection) Surgical History [place] teeth extracted History of ear surgery Family History Mother Lung cancer Colon cancer Mental health disorder Paternal Grandfather Colon cancer Other Substance use disorder Social History Housing: Apartment Are you a primary residential caregiver to a significant other at home: No Do you presently have visiting nurse or other home services: No Alcohol intake: current Alcohol intake frequency: holidays/special occasions only Patient Tobacco Use Status: Never used Tobacco e-Cigarette/Vaping Use: Never Used Second Hand Smoke Exposure: No Current occupational status: employed Cognitive needs: No Hearing needs: No Vision needs: No Physical Exam Vital Signs: Last Vital Signs Pulse 83 12/26/24 09:44 Pulse Ox 98 12/26/24 09:44 BMI result Body Mass Index 38.8 Assessment & Plan Assessment & Plan (1) HIV (human immunodeficiency virus infection): Comment: He is doing well on Descovy and Tivicay. He has no complaints He is up to date on healthcare maintenance strategies He doesnt want to switch Code(s): B20 - Human immunodeficiency virus [HIV] disease Category: Medical Plan: as above Orders: Orders HIV-1 RNA QN PCR Expanded 6 Months B20 - Human immunodeficiency virus [HIV] disease Lymphocyte Subset Panel 3 6 Months B20 - Human immunodeficiency virus [HIV] disease Medications: Refilled emtricitabine-tenofovir alafen 200-25 mg (Descovy) 1 tab PO DAILY 30 tabs 5RF 30 days dolutegravir (Tivicay) 50 mg PO DAILY 30 tabs 5RF 30 days Coding Level of Care Code Est Pt Level 4 (04033) Diagnoses HIV (human immunodeficiency virus infection) B20
--- OUTSIDE RECORDS SUMMARY | 2024-12-26 10:31 | XMS_ITS | Patient Health Record ---
[facility] Organization [facility] Address [address] [place] [address] Care Team Providers Care Ultimate Hoops Referee Name Role Phone MacieThomas smith Primary Care Provider SHANDA Monaco Unavailable [phone] Reason For Referral No Information Problems Problem Type SNOMED Code ICD Code Onset Dates Problem Status W/U Status Risk Notes Problem Morbid obesity (657287049) Morbid obesity due to excess calories (E66.01) Active confirmed Encounters Encounter Location Date Provider Diagnosis [facility] [address] [facility] [address] [place] [address] 01/02/2024 SHANDA GAMBLE Plan Of Treatment No Information Insurance Providers Payer Name Payer Address Payer Phone Subscriber Number Group Number Insured Name Patient Relationship to Insured Coverage Start Date Coverage End Date [facility] [address] [place] [address] [phone] [id number] Gus Antonio Self - patient is the insured
--- OUTSIDE RECORDS SUMMARY | 2024-12-26 10:31 | XMS_ITS | Encounter Summary ---
Author Organization [employer] 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 Name Role Phone Unavailable Primary Care Provider Unavailabl e Encounter Details Date Type Department Care Team (Late st Contact Info) Description 12/20/2024 Orders Only GENERIC EXTERNAL DATA DEPARTMENT Provider, Generic External Data Social History Tobacco Use Types Packs/Day Years Used Date Smoking Tobacco: Never Smokeless Tobacco: Never Alcohol Use Standard Drinks/Week Comments Never 0 (1 standard drink = 0.6 oz pur e alcohol) Sex and Gender Information Value Date Recorded Sex Assigned at Male 08/24/2023 9:12 AM EDT Legal Sex Male 9:07 AM EDT Gender Identity Male 08/24/2023 9:12 AM EDT Sexual Orientation Choose not to disclose 2023 9:12 AM EDT documented as of this encounter Plan of Treatment Pending Results Name Type Priority Associated Diagnoses Date /Time Lymphocyte Subset Panel 3 Lab Routine 12/20/2024 10:58 AM EDT documented as of this encounter Procedures Procedure Name Priority Date/Time Associated Diagnosis Comments HIV 1 RNA, QUANTITATIVE REAL TIME PCR Routine 12/20/2024 10:58 AM EDT LYMPHOCYTE SUBSET PANEL 3, T CELLS Routine 12/20/2024 10:58 AM EDT documented in this encounter Results * (ABNORMAL) HIV-1 RNA, Quantitative, Real-Time PCR (12/20/2024 10:58 AM EDT) HIV RNA PCR Qn Copies 166(A) NOT DETECTED copies/mL [facility] HIV RNA PCR Qn Log Copies 2.22(A) NOT DETECTED [facility] Comment:Result Units: Log co pies/mLThis test was performed using Real-Time Polymerase ChainReaction.Reportable Range: 20 copies/mL to 10,000,000 copies/mL(1.30 log copies/mL to 7.00 log copies/mL).THIS TEST WAS PERFORMED AT:[facility] [place] [phone] BAEZ MD 12/20/2024 10:5 8 AM EDT 12/20/2024 10:58 AM EDT us Generic External Data Provider LAB BLOOD ORDERAB LES Final Result [facility] [address] [place] [phone] documented in this encounter Visit Diagnoses Not on filedocumented in this encounter
--- OUTSIDE RECORDS SUMMARY | 2024-12-26 10:31 | XMS_ITS | Clinical Summary ---
Author Organization [facility] Address [address] [place] [address] Care Team Providers Care Bell Valet Name Role Phone Unavailable Primary Care Provider [...] Active Active Problems No known active problems Encounters Date Type Department Care Team Description 12/20/2024 Orders Only GENERIC EXTERNAL DATA DEPARTMENT Provider, Generic External Data from Last 3 Months Social History Tobacco Use Types Packs/Day Years [...] FIT DNA/Cologuard 1968 FIT 1968 FOBT 1968 Lipid Panel 1968 SDOH Screening 1968 [...] older (1 - 1-dose 75+ series) 12/31/2043 HIV Screening Completed 12/20/2024 HIB Vaccines Aged Out No longer eligi [...] on patient's age to complete this topic Procedures Procedure Name Priority Date/Time Associated Diagnosis Comments LYMPHOCYTE SUBSET PANEL 3, T CELLS Routine 12/20/2024 10:58 AM EDT HIV 1 RNA, QUANTITATIVE REAL TIME PCR Routine 12/20/2024 10:58 AM EDT from Last 3 Months Results * (ABNORMAL) HIV-1 RNA, Quantitative, Real-Time PCR (12/20/2024 10:58 AM EDT) HIV RNA PCR Qn Copies 166(A) NOT DETECTED copies/mL [facility] HIV RNA PCR Qn Log Copies 2.22(A) NOT DETECTED [facility] Comment:Result Units: Log co pies/mLThis test was performed using Real-Time Polymerase ChainReaction.Reportable Range: 20 copies/mL to 10,000,000 copies/mL(1.30 log copies/mL to 7.00 log copies/mL).THIS TEST WAS PERFORMED AT:[facility] [place] [id number] BAEZ MD 12/20/2024 10:5 8 AM EDT 12/20/2024 10:58 AM EDT us Generic External Data Provider LAB BLOOD ORDERAB LES Final Result [facility] [address] [place] [address] [phone] from Last 3 Months Insurance DENTAL - [employer] DENTAL
== END 2024-12-26 10:08 | disposition home or self-care (01) ==
PROVIDERS: PCP Nurse Practitioner Family; Visit Provider Internal Medicine
DX: B20 Human immunodeficiency virus [HIV] disease (principal)
CPT/HCPCS: 99214

== ENCOUNTER → 2024-12-26 09:20 | Outpatient (BNVA) | payer OTHER, SELFPAY | PROVIDERS: PCP Nurse Practitioner Family; Visit Provider Internal Medicine | DX: B20 Human immunodeficiency virus [HIV] disease (principal); Z56.0 Unemployment, unspecified | CPT/HCPCS: 99212 ==

== ENCOUNTER 2025-01-05 10:13 | Outpatient (REF) | payer OTHER, SELFPAY ==
--- NOTE | ~2025-01-05 | XR_ITS ---
EXAMINATION: XR SHOULDER, RIGHT CLINICAL INFORMATION: M25.511 - Pain in right shoulder COMPARISON: None available. TECHNIQUE: AP external rotation, Grashey, scapular Y, and axillary views of the right shoulder. FINDINGS: Moderate-severe acromioclavicular arthritis. No visible acute fracture or dislocation. No significant glenohumeral joint space narrowing. 2 cm focus of calcification superior to the lateral humeral head/greater tuberosity, probably reflecting hydroxyapatite calcifications. No suspicious bony lesion.. XR/XR shoulder RT min 2V IMPRESSION: Moderate-severe acromioclavicular arthritis. 2 cm focus of calcification superior to the lateral humeral head/greater tuberosity, probably reflecting hydroxyapatite calcifications.. Electronically signed by: Logan Hunter MD 01/05/2025 03:11 PM KYLE WONG
== END 2025-01-05 10:14 | disposition home or self-care (01) ==
LOC: HO.HMGCX 10:13
PROVIDERS: PCP Nurse Practitioner Family; Visit Provider Nurse Practitioner Family
DX: M25.511 Pain in right shoulder (principal)
CPT/HCPCS: 73030